=== PATIENT | male | born 1940 | race Hispanic/Latino ===

== ENCOUNTER 2017-10-17 08:35 | Inpatient (IN) | payer OTHER, MEDICARE ==
[2017-10-17 08:53] LABS: CO2 Tension 75.9 mmHg (35.0-45.0)
[2017-10-17 08:54] LABS: Actual Bicarbonate (HCO3a) 36.2 mEq/L (22-28); Base Excess (BEa) 7.6 mEq/L (-2.0 to +3.0); O2 Tension (PaO2) 50.8 mmHg (> 80.0)
[2017-10-17 08:55] LABS: Calcium, Ionized 1.2 mmol/L (1.12-1.30); Hemoglobin (Hb) 11.3 g/dL (14.0-18.0)
[2017-10-17 08:56] LABS: ALV-art Gradient 210.825 (0-20); Analyzer IN Cardio ER; Puncture Site RRA
[2017-10-17] MEDS ORDERED: Propofol 1,000 MG/100 ML VIAL IV ONE (09:01)
[2017-10-17] MEDS ORDERED: methylPREDNISolone Sod Succ/PF 125 MG/2 ML VIAL ONE (09:10)
[2017-10-17] MEDS ORDERED: Piperacillin/Tazobactam 4.5 GM VIAL ONE (09:10)
[2017-10-17] MEDS ORDERED: Water For Inject, Bacteriostat 30 ML ONE (09:11)
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
[2017-10-17 09:14] LABS: INR-International Normal Ratio 1.1; PTT 33.3 SEC (22.9-36.1); Prothrombin Time 14.7 SEC (12.0-14.7)
[2017-10-17 09:15] LABS: Amphetamine Not Detected (NotDetected); Barbiturates Screen Not Detected (NotDetected); Benzodiazepine Screen Not Detected (NotDetected); Bilirubin Negative (Negative); Blood, Urine Small (Negative); Clarity CLOUDY (Clear); Cocaine Metabolite Screen Not Detected (NotDetected); Glucose, Urine (Dipstick) 250 mg/dL (Negative); Leukocyte Negative (Negative); Medtox Control Line Valid? VALID (VALID); Medtox Reader # READER 1; Methadone Not Detected (NotDetected); Methamphetamine Not Detected (NotDetected); Nitrite Negative (Negative); Opiate Screen Not Detected (NotDetected); Oxycodone Screen Not Detected (NotDetected); Phencyclidine (PCP) Not Detected (NotDetected); Protein, Urine (Dipstick) 30 mg/dL (Neg-Trace); Specific Gravity, Urine 1.019 (1.002-1.036); THC/Cannabinoid Screen Not Detected (NotDetected); Tricyclic Screen Not Detected (NotDetected)
[2017-10-17 09:18] LABS: Bacteria/HPF None Seen HPF (None Seen); Pathc Cast-AUWi Flag 2.03 (0-2.49); Squamous Epithelial 0-3 HPF (0-3); WBC/HPF 0-3 HPF (0-3)
[2017-10-17 09:28] LABS: Hyaline Casts/LPF 0-3 HYALINE CAST LPF (0-3 Hyaline); Renal Epithelial 0-3 HPF (0-3); Transitional Epithelial 0-3 HPF (0-3)
[2017-10-17 09:30] LABS: ALT (SGPT) 31 U/L (8-55); AST (SGOT) 31 U/L (5-34); Acetaminophen Less than 6.0 mcg/mL (10.0-30.0); Albumin 3.9 g/dL (3.4-4.8); Alcohol Less than 10 mg/dL (Less than 10); Alkaline Phosphatase 90 U/L (40-150); Anion Gap 16 mmol/L (10-20); BUN (Urea Nitrogen) 32 mg/dL (8.4-25.7); Bilirubin, Total 0.3 mg/dL (0.2-1.2); CK (CPK) 155 U/L (30-200); CKMB 3.7 ng/mL (0-6.6); Calc. Creatinine Clearance 0 mL/min (70-130); Carbon Dioxide 32 mmol/L (23-31); Chloride 89 mmol/L (98-107); Estimated GFR-MDRD 48; Globulin 3.3 g/dL (2.4-3.5); Glucose 324 mg/dL (83-110); Magnesium 2.1 mg/dL (1.6-2.6); Potassium 5.2 mmol/L (3.5-5.1); Protein, Total 7.2 g/dL (5.8-8.1); Salicylate Less than 8.0 mg/dL (15.0-30.0); Sodium 132 mmol/L (136-145); Troponin I 0.031 ng/mL (< 0.028)
[2017-10-17] MEDS ORDERED: Fentanyl 100 MCG/2 ML VIAL ONE ×3 (10:51→12:35)
--- NOTE | 2017-10-17 11:12 | CT ---
CT BRAIN WITHOUT CONTRAST: History: Altered mental status. Elevated blood pressure. Comparison: CT brain, 2013 FINDINGS: There is encephalomalacia in the right frontal lobe, similar. No acute hemorrhage. No midline shit or mass effect. Old lacunar infarcts bilaterally, possibly new on the left from 2013. There is a subtle cortical calcification in the right occipital lobe. Mild atrophy. There is mucosal sinus thickening of both maxillary sinuses. Extensive mucosal thickeni ng of both ethmoids. Mild thickening of both frontal sinuses. The mastoids are relatively clear. Globes are normal. IMPRESSION: Chronic changes. No acute intracranial abnormality. POS: [facility]
[2017-10-17 11:17] LABS: Actual Bicarbonate (HCO3a) 30.9 mEq/L (22-28); Base Excess (BEa) 3.5 mEq/L (-2.0 to +3.0); CO2 Tension 63.3 mmHg (35.0-45.0); pH, Arterial 7.31 (7.35-7.45)
[2017-10-17 11:18] LABS: ALV-art Gradient 592.875 (0-20); Analyzer IN Cardio ER; Calcium, Ionized 1.1 mmol/L (1.12-1.30); Hematocrit-ABG 36.8 % (42.0-52.0); Hemoglobin (Hb) 10.3 g/dL (14.0-18.0); Puncture Site RRA
--- NOTE | 2017-10-17 11:59 | RAD ---
CHEST ONE VIEW: History: Respiratory failure. Comparison: 10-17-17 FINDINGS: Patient intubated with enteric tube tip below the clavicles. Enteric tube tip not well seen. Layering left effusion. Heart size is markedly enlarged. IMPRESSION: 1. Endotracheal tube tip below the clavicles. 2. Large layering left effusion. 3. Cardiomegaly. 4. Mild pulmonary venous congestion. POS: [facility]
[2017-10-17 12:15] LABS: O2 Tension (PaO2) 83.1 mmHg (> 70.0); Puncture Site RRA; pH, Arterial 7.33 (7.35-7.45)
[2017-10-17 12:16] LABS: Actual Bicarbonate (HCO3a) 29.6 mEq/L (22-28); Base Excess (BEa) 2.8 mEq/L (-2.0 to +3.0); Calcium, Ionized 1.1 mmol/L (1.12-1.30); Hematocrit-ABG 38.4 % (42.0-52.0); Hemoglobin (Hb) 10.7 g/dL (14.0-18.0)
[2017-10-17 12:18] LABS: Hemoglobin 12.6 g/dL (14.0-18.0); Mean Corpuscular HGB CONC 32.5 g/dL (32.0-36.0); Mean Corpuscular Hemoglobin 31.8 pg (27.0-31.0); Mean Corpuscular Volume 97.8 fL (78.0-98.0); Mean Platelet Volume 6.5 fL (7.4-10.4); Platelet Count 325 thou/uL (130-400); RBC Distribution Width 12.9 % (11.5-14.5); Red Blood Cell (RBC) Count 3.97 mill/uL (4.70-6.10); White Blood Cell (WBC) Count 14.2 thou/uL (4.8-10.8)
[2017-10-17] MEDS ORDERED: Fentanyl 20 mcg/ml (100 ml CADD) IV PRN (12:23)
[2017-10-17] MEDS ORDERED: Lorazepam 2 MG/ML VIAL ONE (12:37)
[2017-10-17 12:46] LABS: Band 24 % (5-11); Lymphocytes 7 % (21-51); MDiff Complete? YES; Monocytes 6 % (0-10); Neutrophil 59 % (42-75); Nucleated RBC 2 % (0); PLT Morphology Comment Appears Adequate; Polychromasia SLIGHT = 2-3 cells (100X) (0-2/hpf); Reactive Lymphocytes 3 % (0-10)
[2017-10-17] MEDS ORDERED: Ventilator Sedation Protocol 1 EACH FS ONE (12:47)
[2017-10-17] MEDS ORDERED: CCU Electrolyte Replacement 1 EACH FS ONE (12:47)
[2017-10-17] MEDS ORDERED: Dextrose 50% Abboject 50 ML SYRINGE SLOW IVP PRN (12:47)
[2017-10-17] MEDS ORDERED: Dextrose 5% in Water 1,000 ML IV PRN (12:47)
[2017-10-17] MEDS ORDERED: Magnesium Oxide 400 MG TAB PO PRN ×2 (12:55)
[2017-10-17] MEDS ORDERED: CCU ELECTROLYTE REPLACEMENT PROTOCOL FS PRN (12:55)
[2017-10-17] MEDS ORDERED: Potassium Phosphate 12 MMOL in Sodium Chloride 0.9% 250 ML 250 ML IV PRN (12:55)
[2017-10-17] MEDS ORDERED: Magnesium 2 GM/NS 0.9% 100 ML 2 GM in Premix Bag 1 BAG IVPB PRN (12:55)
[2017-10-17] MEDS ORDERED: Potassium Chloride 40 MEQ in Sodium Chloride 0.9% 250 ML 250 ML IVPB PRN (12:55)
[2017-10-17] MEDS ORDERED: Potassium Phosphate 15 MMOL in Sodium Chloride 0.9% 250 ML 250 ML IV PRN (12:55)
[2017-10-17] MEDS ORDERED: Potassium Chloride 40 MEQ in Premix Bag 1 BAG IVPB PRN (12:55)
[2017-10-17] MEDS ORDERED: Potassium Phosphate 9 MMOL in Sodium Chloride 0.9% 100 ML IVPB PRN (12:55)
[2017-10-17] MEDS ORDERED: Potassium Chloride 20 MEQ TAB PO PRN (12:55)
[2017-10-17] MEDS ORDERED: Fentanyl CADD 250 ML IVPB SCH (12:56)
[2017-10-17] MEDS ORDERED: Propofol BOLUS 1,000 MG/100 ML VIAL IV PRN (12:56)
[2017-10-17] MEDS ORDERED: DISCONTINUE PREVIOUS NARCOTIC PAIN MEDICATIONS AND BENZODIAZEPINES FS SCH (12:56)
[2017-10-17] MEDS ORDERED: Lorazepam 2 MG/ML VIAL SLOW IVP PRN (12:56)
[2017-10-17] MEDS ORDERED: Fentanyl BOLUS 250 ML IVPB PRN (12:56)
--- NOTE | 2017-10-17 13:37 | CT ---
NONCONTRAST CT THORAX: DATE: 10/17/17. HISTORY: Patient with altered mental status. Decreased oxygen saturation and gasping respirations noted by EM S. Respiratory failure. Oxygen desaturation. Pneumonia. COMPARISON: 08/14/12. FINDINGS: There is consolidation seen at the left lung base with mild patchy parenchymal changes at the right l michelle base. Consolidation of the left lung base is worrisome for pneumonia. Air bronchograms are pres ent within the area of consolidation. There are very small bilateral pleural effusions. Pleural-based calcification at the left lung base is present also noted on prior exam. There are min imal patchy densities within the posterior aspect of the right upper lobe which could be related to a telectasis or infectious process as well. Endotracheal tube is noted in place which is above the level of the titi. Nasogastric tube is note d in place with tip in the distal body of the stomach. Vascular calcifications are present in the thoracic spine which have increased from prior exam. Calc ifications of mitral valve annulus are noted. The heart is mildly enlarged. The upper abdomen demonstrated grossly normal nonenhanced CT appearance. Remote left-sided rib fractures are noted with prominent left glenohumeral osteoarthropathy. Degener ative changes are noted in the spine. No other interval change from the prior exam. IMPRESSION: 1. Left lower lobe pneumonia versus aspiration pneumonitis. 2. Patchy parenchymal changes in the region of the right middle lobe and right lung base which also could be related to developing areas of pneumonia. Followup to complete resolution is recommended. Atypical pneumonia could not be entirely excluded. 3. Very small bilateral pleural effusions. 4. Cardiomegaly. 5. Endotracheal tube and nasogastric tubes noted in place. 6. Remote left-sided rib fractures. POS: [facility]
[2017-10-17 13:47] LABS: Lactic Acid 2.7 mmol/L (0.5-2.2)
[2017-10-17] MEDS ORDERED: VANCOMYCIN IVPB PRN (13:47)
--- NOTE | 2017-10-17 14:29 | HP ---
PRIMARY CARE PHYSICIAN: Dr. Janie Henry. CHIEF COMPLAINT: Altered mental status. HISTORY OF PRESENT ILLNESS: The history of present illness is taken from the patient's son as the patient is currently intubated and cannot give a history. He is a 76-year-old gentleman that has a history of hypertension and diabetes. He was in his usual state of health until this morning, his says he was trying to wake him up, but he would not wake up. He looked sweaty and could barely breathe. For this reason, they called EMS and he was brought to the emergency room. Shortly after being in the ER, he was known to be in respiratory distress and was intubated. He was found to be hypercapnic as well as hypoxic and had a chest x-ray with a left-sided infiltrate. He is being treated for presumed pneumonia. On further questioning of the patient's son and the patient's , who is at the bedside, they said that he seemed to go to bed normal the night before. He did seem to be a little bit tired and weak over the last few days. They did notice a little bit of a poor appetite and he had been complaining of some cough, which is productive of some yellowish phlegm. He had seen his primary care physician who had given him an inhaler as well as some samples of Mucinex. It is unclear whether he had any antibiotics; however, there were none in his medication bag. Otherwise, no other history is obtainable. REVIEW OF SYSTEMS: This is unobtainable as the patient is intubated. PAST MEDICAL HISTORY: Significant for diabetes, hypertension, and high cholesterol. PAST SURGICAL HISTORY: Has had some surgeries for broken leg. ALLERGIES: No known drug allergies. SOCIAL HISTORY: He is . There is no history of any smoking. He drinks , they are not sure how much, but they think maybe a 12 pack a day. He is retired. FAMILY HISTORY: Significant for diabetes mellitus. CURRENT MEDICATIONS: Include Lipitor 10 mg daily, metformin 1000 mg twice daily and losartan 100 mg daily, as well as Mucinex samples. PHYSICAL EXAMINATION: GENERAL: He is intubated, sedation was taken off due to hypotension. He is well-developed and well-nourished. VITAL SIGNS: Blood pressure was approximately 83/40, heart rate in the 70s, respiratory rate is 16 on the ventilator, and temperature was 97.3. HEENT: His pupils are a bit pinpoint and sluggish. There is no conjunctival injection and it was anicteric. NECK: There were no bruits. LUNGS: He has got coarse breath sounds and rhonchi bilaterally. I was not able to appreciate any rales. There is no wheezing. CARDIOVASCULAR: He had a normal S1, S2. I did not appreciate an S3 or S4. No murmurs. ABDOMEN: Obese, it is soft. Bowel sounds are slightly diminished. There is no appreciable organomegaly. EXTREMITIES: There is trace pedal edema. NEUROLOGICALLY: Hard to assess, however, he was moving all of his extremities. There was no report of any neurological deficit prior to the event or being intubated. SIGNIFICANT LABORATORY: CBC is currently pending. He had an ABG of pH is 7.3, pCO2 of 63, pO2 was 41. Sodium 132, potassium 5.2, chloride is 89, CO2 is 32, BUN of 32, creatinine 1.4, glucose is 324, troponin was 0.031. B-natriuretic peptide is 488. Urinalysis was essentially negative. Urine drug screen was negative. On his chest x-ray, he had some cardiomegaly as well as pulmonary parenchymal infiltrate in the left upper lobe. The costophrenic diaphragm on the left is obscured, possibly indicating pleural effusion and it looks as if he may have some patchy infiltrate in the other parts of the lung parenchyma on the right. He had a CT scan of the brain with no acute abnormalities. ASSESSMENT AND PLAN: 1. This is a 76-year-old gentleman who is being admitted to the hospital with acute respiratory failure with hypoxemia and hypercapnia. Possible he has a pneumonia given the distribution of the infiltrate on the chest x-ray, he has a history of previous pneumonia requiring intubation in the past according to the patient's son. We do not yet have the CBC to see if there is any leukocytosis; however, he did not have any fever, but if he does drink 12 beers a day, he is at risk for aspiration; therefore, we will go ahead and admit him to the ICU with acute respiratory failure secondary to pneumonia as a presumed diagnosis, Most likely Community Acquired Pneumonia. He will be placed on broad-spectrum IV antibiotics. Blood cultures have already been obtained from the emergency room. The cnc router operator will be consulted with regards to aid in diagnosis as well as ventilator management. The patient is at risk for coronary artery disease and this could be pulmonary edema as well as pneumonia. This is in the differential given his history of hypertension and diabetes. For this reason, we will go ahead and get an echocardiogram to assess his ejection fraction and get serial cardiac enzymes to rule out myocardial infarction. 2. Diabetes mellitus. He will be placed on a sliding scale insulin and he will also be placed on deep venous thrombosis and gastrointestinal prophylaxis. [facility]
[2017-10-17] MEDS: Piperacillin/Tazobactam 3.375 GM in Sodium Chloride 0.9% 100 ML IVPB SCH ×2 (15:04→20:44)
[2017-10-17] MEDS: Heparin 5,000 UNITS/ML VIAL SC SCH ×2 (15:05→20:45)
[2017-10-17] MEDS: HumaLOG 300 UNITS/3 ML VIAL SC PRN ×2 (15:39→22:05)
[2017-10-17 16:20] LABS: Troponin I 0.326 ng/mL (< 0.028)
[2017-10-17 18:55] LABS: Troponin I 0.577 ng/mL (< 0.028)
[2017-10-17] MEDS: Famotidine/PF 20 mg/2ml Vial SLOW IVP SCH (21:02)
[2017-10-18] MEDS ORDERED: Aspirin 325 MG TAB PER TUBE SCH (01:00)
[2017-10-18] MEDS: Piperacillin/Tazobactam 3.375 GM in Sodium Chloride 0.9% 100 ML IVPB SCH ×4 (03:09→20:24)
[2017-10-18] MEDS: Propofol 1,000 MG/100 ML VIAL IV PRN ×4 (03:13→22:06)
[2017-10-18] MEDS: HumaLOG 300 UNITS/3 ML VIAL SC PRN ×4 (04:21→20:25)
[2017-10-18 04:41] LABS: Band 18 % (5-11); Hemoglobin 10.8 g/dL (14.0-18.0); Lymphocytes 8 % (21-51); MDiff Complete? YES; Mean Corpuscular HGB CONC 33.4 g/dL (32.0-36.0); Mean Corpuscular Hemoglobin 31.9 pg (27.0-31.0); Mean Corpuscular Volume 95.5 fL (78.0-98.0); Mean Platelet Volume 6.4 fL (7.4-10.4); Monocytes 4 % (0-10); Neutrophil 70 % (42-75); Nucleated RBC 2 % (0); PLT Morphology Comment Appears Adequate; Platelet Count 277 thou/uL (130-400); RBC Distribution Width 13.1 % (11.5-14.5); Red Blood Cell (RBC) Count 3.39 mill/uL (4.70-6.10); White Blood Cell (WBC) Count 8.3 thou/uL (4.8-10.8)
[2017-10-18 04:42] LABS: Anion Gap 15 mmol/L (10-20); BUN (Urea Nitrogen) 36 mg/dL (8.4-25.7); Calc. Creatinine Clearance 56 mL/min (70-130); Carbon Dioxide 26 mmol/L (23-31); Cardiac Risk 3.4 (Less than 4.5); Chloride 98 mmol/L (98-107); Cholesterol 141 mg/dl (< 200 Desired); Estimated GFR-MDRD 47; Glucose 252 mg/dL (83-110); HDL Cholesterol 41 mg/dL (>60 Neg Risk); LDL Cholesterol, Calculated 59 mg/dL; Magnesium 1.6 mg/dL (1.6-2.6); Potassium 3.9 mmol/L (3.5-5.1); Sodium 135 mmol/L (136-145); Triglycerides 206 mg/dL (Less than 150)
[2017-10-18 06:46] LABS: Actual Bicarbonate (HCO3a) 23.5 mEq/L (22-28); Base Excess (BEa) 0.1 mEq/L (-2.0 to +3.0); CO2 Tension 33.8 mmHg (35.0-45.0); Hemoglobin (Hb) 11.1 g/dL (14.0-18.0); O2 Tension (PaO2) 141.1 mmHg (> 70.0); pH, Arterial 7.46 (7.35-7.45)
[2017-10-18 06:47] LABS: Calcium, Ionized 1.1 mmol/L (1.12-1.30)
[2017-10-18 06:48] LABS: Puncture Site LRA
--- NOTE | 2017-10-18 09:00 | CON ---
DATE OF CONSULTATION: 10/17/2017 HISTORY OF PRESENT ILLNESS: Mr. Bowie is a gentleman who is 76 years old. He presented with respi ratory distress. He apparently was intubated in the field. He has a 7.0 endotracheal tube. The admission history and physical says he was intubated in the ER. PAST MEDICAL HISTORY: Very little known about his past history other than he has diabetes, hypertens ion, liver disorder. SOCIAL HISTORY: He is a nonsmoker. Reportedly, he is a daily drinker. ALLERGIES: He has no drug allergies. FAMILY HISTORY: Positive for diabetes. REVIEW OF SYSTEMS: Not obtainable. PHYSICAL EXAMINATION: GENERAL: He is very tachypneic when he arrived on assist control ventilation. He was switched to bi level with controlled rate and sedated, became much easier to ventilate. VITAL SIGNS: His heart rate is 64 now, respiratory rate is 15, blood pressure 106/63, oximetry is in the mid 90s. HEENT: Pupils react. Sclerae are anicteric. He appears his age. NECK: Supple. LUNGS: Remarkable for rhonchi bilaterally, worse on the left. HEART: Regular rhythm. ABDOMEN: Soft and nontender. No masses. EXTREMITIES: Without clubbing, cyanosis, or edema. NEUROLOGIC: Not really assessable because of his intubation and sedation. LABORATORY AND X-RAY FINDINGS: White count is 14.2, hemoglobin 12.6, platelets 325, 24% bands on his peripheral smear. Sodium 132, potassium 5.2, chloride 89, bicarbonate 32, BUN 32, creatinine 1.42. PH 7.33, pCO2 of 57, pO2 of 83. At 8 o'clock this morning, pH 7.3, CO2 of 75, pO2 of 50 that was dieter tilated. Chest CT without contrast was done at my request. He has dense alveolar infiltrate at the left base greater than the right. There is no evidence for loculated effusion at this time. IMPRESSION: 1. Severe community-acquired pneumonia with respiratory failure. 2. ? daily heavy alcohol use. 3. Diabetes. 4. Hypertension. 5. Lipid disorder. PLAN: Mechanical ventilation with bilevel ventilation for now until he clinically improves. He will need to be kept sedated. Broad antimicrobial therapy will be given. Does not clinically appear to be septic. Steroids would probably be helpful. Nebulized treatments would be helpful as well. Critical care time, 35 minutes.
--- NOTE | 2017-10-18 09:50 | PDOC.PN ---
- Subjective Encounter Start Date: 10/18/17 Encounter Start Time: 09:46 was seen for follow of Acute respiratory failure due to Pneumonia. He is intubated and sedated. - Objective Resuscitation Status: Resuscitation Status FULL:Full Resuscitation MAR Reviewed: Yes Vital Signs & Weight: Vital Signs (12 hours) Temp Pulse Resp BP Pulse Ox 10/18/17 06:55 63 129/64 10/18/17 06:25 61 134/73 10/18/17 06:00 15 10/18/17 04:00 97.8 F 15 10/18/17 03:41 97.7 F 70 15 99 10/18/17 02:19 65 10/18/17 02:18 65 15 99 10/18/17 02:00 15 10/18/17 00:00 15 10/17/17 22:09 70 17 96 10/17/17 22:00 15 Most Recent Monitor Data Heart Rate from ECG 63 NIBP 134/73 NIBP BP-Mean 97 Respiration from ECG 15 SpO2 98 I&O: 10/17/17 10/18/17 10/19/17 06:59 06:59 06:59 Intake Total 241.5 Output Total 660 Balance -418.5 Result Diagrams: 10/18/17 04:23 10/18/17 04:23 Additional Labs: Accuchecks 10/18/17 10/17/17 10/17/17 04:16 22:02 15:34 POC Glucose 227 H 241 H 286 H Phys Exam - Physical Examination HEENT: PERRLA Respiratory: no wheezing + rhonchi scattered, no appreciable rales Cardiovascular: RRR, no significant murmur, no rub Gastrointestinal: soft, non-tender, positive bowel sounds Musculoskeletal: no edema Dx/Plan (1) Acute respiratory failure with hypoxia Code(s): J96.01 - ACUTE RESPIRATORY FAILURE WITH HYPOXIA Status: Acute (2) Pneumonia, community acquired Code(s): J18.9 - PNEUMONIA, UNSPECIFIED ORGANISM Status: Acute (3) Diabetes mellitus type 2 in obese Code(s): E11.69 - TYPE 2 DIABETES MELLITUS WITH OTHER SPECIFIED COMPLICATION; E66.9 - OBESITY, UNSPECIFIED Status: Acute (4) Hypertension Code(s): I10 - ESSENTIAL (PRIMARY) HYPERTENSION Status: Acute - Plan * Pneumonia- Continue Zosyn and Vancomycin for now and is still requiring ventilator support * Continue as per PCCM * DM- blood glucose was a bit elevated- will add a low dose Long acting insulin * HTN- blood pressure is controlled * Continue DVT abd GI prophylaxis * If he remains intubated then consider Nutritional support with tube feeding.
[2017-10-18] MEDS: Heparin 5,000 UNITS/ML VIAL SC SCH ×3 (09:59→20:24)
[2017-10-18] MEDS: Vancomycin HCl 1.5 GM in Sodium Chloride 0.9% 250 ML 300 ML IVPB SCH (10:00)
--- NOTE | 2017-10-18 10:59 | RAD ---
PORTABLE SEMIUPRIGHT FRONTAL CHEST RADIOGRAPH: 10/18/2017 HISTORY: Ventilated patient. COMPARISON: 10/17/2017 FINDINGS: Nasogastric tube and endotracheal tube in stable position. Hazy increased density within the left ba se suggests volume loss or infiltrate. There is dense opacity within the left base, suggesting left lower lobe consolidation/collapse and/or left pleural fluid, slightly worsened when compared to the prior exam. There is severe degenerative change at the left glenohumeral joint. IMPRESSION: Dense opacity in left lung base. Stable lines and tubes. POS: [facility]
--- NOTE | 2017-10-18 13:13 | PRG ---
DATE OF SERVICE: 10/18/2017 SUBJECTIVE: Mr. Bowie has improved dramatically. His is a [place]ican speaking only, but in my r easonable [place], I explained to her that he is doing better. OBJECTIVE: VITAL SIGNS: He is afebrile, respiratory rate is 14, oximetry is in the mid 90s, heart rate 68, bloo d pressure 114/59. LUNGS: Remarkable for improved rhonchi, secretions seem to have improved. HEART: Regular rhythm, no S3. ABDOMEN: Soft and nontender. EXTREMITIES: No clubbing, cyanosis, or edema. NEUROLOGIC: Grossly nonfocal. LABORATORY DATA: White count 8.3, hemoglobin 10.8, platelets 277,000. Sodium 135, potassium 3.9, ch loride 98, bicarbonate 26, BUN 36, creatinine 1.45, glucose 252, creatinine yesterday was 1.42. IMPRESSION AND PLAN: 1. Community-acquired pneumonia. 2. Respiratory failure. 3. Acute on chronic kidney disease. 4. Diabetes. 5. Difficult mechanical ventilation yesterday, he had to be ventilated with bilevel ventilation. To day, his blood gas showed pH 7.46, CO2 33, pO2 of 141 on bilevel on FIO2 of 60%. He has been s witched back to volume ventilation and he is doing well with volume ventilation today. Chest radiograph today showed the dense alveolar infiltrate as expected as worse. Overall, clinically he is better. I would anticipate that he would be ventilated for another 3-5 day s. Critical care time was 30 minutes.
[2017-10-18] MEDS ORDERED: Pancrelipase DR 12000 1 CAP FS PRN (16:38)
[2017-10-18] MEDS ORDERED: Sodium Bicarbonate Tab 325 MG TAB PER TUBE PRN (16:38)
[2017-10-18] MEDS: fentaNYL Citrate/PF 2,000 MCG in Sodium Chloride 0.9% 60 ML IV SCH (17:55)
[2017-10-18] MEDS: Famotidine/PF 20 mg/2ml Vial SLOW IVP SCH (20:24)
[2017-10-18] MEDS: Aspirin 325 MG TAB PER TUBE SCH (20:24)
[2017-10-18] MEDS ORDERED: Insulin Glargine 10 UNITS in Pre-Filled Syringe 1 EACH SC SCH (21:00)
[2017-10-19] MEDS: Piperacillin/Tazobactam 3.375 GM in Sodium Chloride 0.9% 100 ML IVPB SCH ×4 (02:59→20:25)
[2017-10-19] MEDS: Propofol 1,000 MG/100 ML VIAL IV PRN ×3 (02:59→23:57)
[2017-10-19] MEDS: HumaLOG 300 UNITS/3 ML VIAL SC PRN ×4 (04:36→20:30)
[2017-10-19 05:21] LABS: Band 6 % (5-11); Hemoglobin 10.7 g/dL (14.0-18.0); Hypochromia SLIGHT = 6-15 cells (100X) (0-5/hpf); Lymphocytes 1 % (21-51); MDiff Complete? YES; Mean Corpuscular HGB CONC 33.6 g/dL (32.0-36.0); Mean Corpuscular Hemoglobin 32.2 pg (27.0-31.0); Mean Corpuscular Volume 95.9 fL (78.0-98.0); Mean Platelet Volume 6.3 fL (7.4-10.4); Monocytes 6 % (0-10); Neutrophil 87 % (42-75); PLT Morphology Comment Appears Adequate; Platelet Count 282 thou/uL (130-400); RBC Distribution Width 13.4 % (11.5-14.5); Red Blood Cell (RBC) Count 3.31 mill/uL (4.70-6.10); Toxic Granulation SLIGHT; White Blood Cell (WBC) Count 8.4 thou/uL (4.8-10.8)
[2017-10-19 08:10] LABS: Actual Bicarbonate (HCO3a) 29.3 mEq/L (22-28); Base Excess (BEa) 2.7 mEq/L (-2.0 to +3.0); CO2 Tension 51.3 mmHg (35.0-45.0); O2 Tension (PaO2) 89.9 mmHg (> 70.0); pH, Arterial 7.37 (7.35-7.45)
[2017-10-19 08:11] LABS: ALV-art Gradient 131.175 (0-20); Calcium, Ionized 1.1 mmol/L (1.12-1.30); Puncture Site RRA
[2017-10-19] MEDS ORDERED: Insulin Glargine 10 UNITS in Pre-Filled Syringe 1 EACH SC SCH (09:00)
[2017-10-19] MEDS: Heparin 5,000 UNITS/ML VIAL SC SCH ×3 (09:07→20:26)
[2017-10-19] MEDS: Vancomycin HCl 1.5 GM in Sodium Chloride 0.9% 250 ML 300 ML IVPB SCH (09:22)
[2017-10-19 09:26] LABS: Vancomycin, Trough 9.2 ug/mL
[2017-10-19] MEDS ORDERED: Vancomycin HCl 250 MG in Sodium Chloride 0.9% 100 ML IVPB SCH (10:00)
--- NOTE | 2017-10-19 10:21 | RAD ---
SUPINE PORTABLE CHEST ONE VIEW: HISTORY: A 76-year-old male with a history of respiratory insufficiency. COMPARISON: 10/18/2017 FINDINGS: NG tube and endotracheal tube in position. Cardiomegaly with bilateral vascular congestion and bilat eral pleural effusions with some increased markings in the basis, overall stable. IMPRESSION: Overall stable chest with cardiomegaly, vascular congestion, and pleural effusion. Continue short te rm followup. POS: [facility]
--- NOTE | 2017-10-19 10:36 | PDOC.PN ---
- Subjective Encounter Start Date: 10/19/17 Encounter Start Time: 10:35 Mr. Bowie was seen today in follow-up of Pneumonia. He is still intubated. He is more alert, and will respond to voice. No complaints voiced by staff. - Objective Resuscitation Status: Resuscitation Status FULL:Full Resuscitation MAR Reviewed: Yes Vital Signs & Weight: Vital Signs (12 hours) Temp Pulse Resp BP Pulse Ox 10/19/17 08:00 98.2 F 12 10/19/17 07:08 69 136/71 10/19/17 07:01 55 L 12 97 10/19/17 06:00 12 10/19/17 04:00 97.8 F 14 10/19/17 02:00 14 10/19/17 01:53 61 10/19/17 01:52 60 14 96 10/19/17 00:00 97.7 F 14 Weight Admit Weight 200 lb 13.44 oz Weight 200 lb 13.458 oz Most Recent Monitor Data Heart Rate from ECG 65 NIBP 168/82 NIBP BP-Mean 93 Respiration from ECG 12 SpO2 92 I&O: 10/18/17 10/19/17 10/20/17 06:59 06:59 06:59 Intake Total 241.5 1929.9 Output Total 660 978 330 Balance -418.5 951.9 -330 Result Diagrams: 10/19/17 04:45 10/18/17 04:23 Additional Labs: Accuchecks 10/19/17 10/18/17 10/18/17 04:27 20:25 16:24 POC Glucose 247 H 233 H 234 H Phys Exam - Physical Examination HEENT: PERRLA + coarse breath sounds, and rales at the bases Cardiovascular: RRR, no significant murmur, no rub Gastrointestinal: soft, positive bowel sounds Musculoskeletal: no edema Dx/Plan (1) Acute respiratory failure with hypoxia Code(s): J96.01 - ACUTE RESPIRATORY FAILURE WITH HYPOXIA Status: Acute (2) Pneumonia, community acquired Code(s): J18.9 - PNEUMONIA, UNSPECIFIED ORGANISM Status: Acute (3) Diabetes mellitus type 2 in obese Code(s): E11.69 - TYPE 2 DIABETES MELLITUS WITH OTHER SPECIFIED COMPLICATION; E66.9 - OBESITY, UNSPECIFIED Status: Acute (4) Hypertension Code(s): I10 - ESSENTIAL (PRIMARY) HYPERTENSION Status: Acute - Plan * Acute respiratory failure due to Pneumonia- continue Zosyn and Vancomycin * DM- blood glucose is elevated- likely due to steroids- will continue to titrate the dose of insulin * .
[2017-10-19] MEDS ORDERED: Losartan 25 MG TAB PER TUBE SCH (11:00)
--- NOTE | 2017-10-19 12:44 | PRG ---
DATE OF SERVICE: 10/19/2017 SUBJECTIVE: The patient remains intubated on the vent. He is slightly sedated. He is responsive. His daughter is at the bedside. PHYSICAL EXAMINATION: VITAL SIGNS: Blood pressure 131/70, pulse 55, respirations 18, sats are 95%. CHEST: Extensive rhonchi and crackles. CARDIAC: Sinus tachycardia. ABDOMEN: Distended, but soft. LABORATORY DATA AND IMAGING DATA: PO2 is 89, pCO2 of 51, rate of 12, 40%, 500 tidal volume. C hest x-ray showed bilateral lower lobe infiltrates. Glucose 249. His chemistry profile shows creati nine is 1.45. IMPRESSION: Bilateral bronchopneumonia, obesity and deconditioning. So far, cultures are negative. PLAN: He is not weanable. Continue steroids, neb treatments. Nutrition and PT. One-half hour critical care time.
[2017-10-19] MEDS: fentaNYL Citrate/PF 2,000 MCG in Sodium Chloride 0.9% 60 ML IV SCH (13:55)
[2017-10-19] MEDS: Aspirin 325 MG TAB PER TUBE SCH (20:26)
[2017-10-19] MEDS: Famotidine/PF 20 mg/2ml Vial SLOW IVP SCH (20:27)
[2017-10-19] MEDS ORDERED: Insulin Glargine 15 UNITS in Pre-Filled Syringe 1 EACH SC SCH (21:00)
[2017-10-20] MEDS: Piperacillin/Tazobactam 3.375 GM in Sodium Chloride 0.9% 100 ML IVPB SCH ×4 (02:29→21:07)
[2017-10-20] MEDS: HumaLOG 300 UNITS/3 ML VIAL SC PRN ×3 (05:59→21:11)
[2017-10-20 06:01] LABS: Band 1 % (5-11); Elliptocytes SLIGHT = 2-5 cells (100X) (0-1/hpf); Hemoglobin 10.3 g/dL (14.0-18.0); Lymphocytes 2 % (21-51); MDiff Complete? YES; Mean Corpuscular Hemoglobin 30.5 pg (27.0-31.0); Mean Corpuscular Volume 98.2 fL (78.0-98.0); Mean Platelet Volume 6.3 fL (7.4-10.4); Microcytosis SLIGHT = 6-15 cells (100X) (0-5/hpf); Monocytes 4 % (0-10); Neutrophil 93 % (42-75); PLT Morphology Comment Appears Adequate; Platelet Count 262 thou/uL (130-400); RBC Distribution Width 13.8 % (11.5-14.5); White Blood Cell (WBC) Count 8.5 thou/uL (4.8-10.8)
[2017-10-20 08:37] LABS: Actual Bicarbonate (HCO3a) 33.7 mEq/L (22-28); Base Excess (BEa) 6.1 mEq/L (-2.0 to +3.0); CO2 Tension 64.1 mmHg (35.0-45.0); Hemoglobin (Hb) 11.9 g/dL (14.0-18.0); O2 Tension (PaO2) 74.8 mmHg (> 70.0); pH, Arterial 7.34 (7.35-7.45)
[2017-10-20 08:38] LABS: ALV-art Gradient 130.275 (0-20); Calcium, Ionized 1.2 mmol/L (1.12-1.30); Puncture Site RRA
[2017-10-20] MEDS ORDERED: Insulin Glargine 15 UNITS in Pre-Filled Syringe 1 EACH SC SCH (09:00)
[2017-10-20] MEDS ORDERED: Losartan 25 MG TAB PO SCH (09:00)
--- NOTE | 2017-10-20 10:01 | PRG ---
DATE OF SERVICE: 10/20/2017 SUBJECTIVE: This morning, intubated on the vent, awake. OBJECTIVE: VITAL SIGNS: Pulse 71, blood pressure is 119/46, sats are 91-92% on the vent, respirations 12. He i s awake. Temperature is 98. CHEST: Bilateral rhonchi. CARDIAC: Normal S1 and S2, no gallops. ABDOMEN: Soft. EXTREMITIES: No edema. NEUROLOGIC: He is awake. LABORATORY DATA: PO2 is 74, pCO2 is 64, pH is 7.34. White count 8.5, hemoglobin and hematocrit 10 a nd 30, platelet count is normal. IMAGING DATA: X-ray shows bilateral bronchopneumonia. IMPRESSION: 1. Bilateral bronchopneumonia. 2. Respiratory failure. 3. Obesity. PLAN: All cultures are negative. I will continue Zosyn, steroids, vancomycin. He is not weanable at this stage. Continue nutrition and PT. [id number] critical care time.
--- NOTE | 2017-10-20 10:10 | PDOC.PN ---
- Subjective Encounter Start Date: 10/20/17 Encounter Start Time: 10:08 Mr. Bowie was ssen today in follow-up of acute respiratory failure due to pneumonia. He is stable on the ventilator. He indicates no problems. - Objective Resuscitation Status: Resuscitation Status FULL:Full Resuscitation MAR Reviewed: Yes Vital Signs & Weight: Vital Signs (12 hours) Temp Pulse Resp BP Pulse Ox 10/20/17 09:22 97.8 F 60 10 L 96 10/20/17 08:42 12 10/20/17 08:11 72 115/49 L 10/20/17 08:08 66 10 L 95 10/20/17 08:00 97.8 F 10/20/17 06:00 10 L 10/20/17 04:00 98.6 F 10 L 10/20/17 02:00 10 L 10/20/17 01:57 59 L 10 L 95 10/20/17 00:00 98.4 F 10 L 10/19/17 22:19 58 L 12 94 L Weight Admit Weight 200 lb 13.44 oz Weight 200 lb 13.458 oz Most Recent Monitor Data Heart Rate from ECG 66 NIBP 179/80 NIBP BP-Mean 89 Respiration from ECG 12 SpO2 95 I&O: 10/19/17 10/20/17 10/21/17 06:59 06:59 06:59 Intake Total 1929.9 2202.4 30 Output Total 978 1518 240 Balance 951.9 684.4 -210 Result Diagrams: 10/20/17 05:34 10/18/17 04:23 Additional Labs: Accuchecks 10/20/17 10/19/17 10/19/17 05:35 20:24 16:51 POC Glucose 224 H 224 H 199 H 10/19/17 10:18 POC Glucose 241 H Phys Exam - Physical Examination HEENT: PERRLA + coarse breath sounds bilaterally and rales at the bases Cardiovascular: RRR, no significant murmur, no rub Gastrointestinal: soft, positive bowel sounds Musculoskeletal: no edema Dx/Plan (1) Acute respiratory failure with hypoxia Code(s): J96.01 - ACUTE RESPIRATORY FAILURE WITH HYPOXIA Status: Acute (2) Pneumonia, community acquired Code(s): J18.9 - PNEUMONIA, UNSPECIFIED ORGANISM Status: Acute (3) Diabetes mellitus type 2 in obese Code(s): E11.69 - TYPE 2 DIABETES MELLITUS WITH OTHER SPECIFIED COMPLICATION; E66.9 - OBESITY, UNSPECIFIED Status: Acute (4) Hypertension Code(s): I10 - ESSENTIAL (PRIMARY) HYPERTENSION Status: Acute - Plan * Pneumonia- continue Vancomycin and Zosyn * Slow wean from the Ventilator as per Dr. Lawrence * DM- blood glucose is still a bit elevated- will continue to titrate insulin dose * HTN - blood pressure is mostly stable.
[2017-10-20] MEDS: Heparin 5,000 UNITS/ML VIAL SC SCH ×3 (10:13→21:08)
[2017-10-20] MEDS: Vancomycin HCl 1.75 GM in Sodium Chloride 0.9% 500 ML IVPB SCH (10:14)
[2017-10-20] MEDS: fentaNYL Citrate/PF 2,000 MCG in Sodium Chloride 0.9% 60 ML IV SCH (10:28)
--- NOTE | 2017-10-20 10:49 | RAD ---
PORTABLE AP CHEST XRAY: DATE: 10/20/17. HISTORY: On ventilator. COMPARISON: 10/19/17. FINDINGS: Endotracheal tube and nasogastric tubes remain in place and unchanged in position. There are bibasil ar pleural and parenchymal lung changes likely related to bilateral pleural effusions and associated atelectasis. Increased parenchymal densities are also seen in the left perihilar location. Findings could be related to asymmetric edema or developing infectious process. Cardiac silhouette is magnif ied by patient rotation but is probably mildly enlarged. No other interval change. IMPRESSION: 1. Bilateral pleural effusions with associated atelectasis. 2. Parenchymal changes in the left perihilar location which could be related to either asymmetric pu lmonary edema or developing infectious process. POS: [facility]
[2017-10-20] MEDS: Losartan 25 MG TAB PER TUBE SCH (10:53)
[2017-10-20] MEDS: Propofol 1,000 MG/100 ML VIAL IV PRN ×2 (10:59→21:07)
[2017-10-20] MEDS ORDERED: Insulin Glargine 20 UNITS in Pre-Filled Syringe SC SCH (11:15)
[2017-10-20] MEDS: hydrALAZINE 20 MG/ML VIAL SLOW IVP PRN ×2 (13:10→16:55)
[2017-10-20] MEDS ORDERED: Amlodipine 5 MG TAB PER TUBE SCH (17:15)
[2017-10-20] MEDS: Famotidine/PF 20 mg/2ml Vial SLOW IVP SCH (21:09)
[2017-10-20] MEDS: Insulin Glargine 20 UNITS in Pre-Filled Syringe SC SCH (21:10)
[2017-10-20] MEDS: Aspirin 325 MG TAB PER TUBE SCH (21:10)
[2017-10-21] MEDS: Propofol 1,000 MG/100 ML VIAL IV PRN ×6 (00:34→23:22)
[2017-10-21] MEDS: Piperacillin/Tazobactam 3.375 GM in Sodium Chloride 0.9% 100 ML IVPB SCH ×4 (03:38→20:19)
[2017-10-21] MEDS: HumaLOG 300 UNITS/3 ML VIAL SC PRN ×3 (04:01→15:38)
[2017-10-21 04:46] LABS: Band 3 % (5-11); Hemoglobin 12.1 g/dL (14.0-18.0); Lymphocytes 6 % (21-51); MDiff Complete? YES; Mean Corpuscular HGB CONC 32.4 g/dL (32.0-36.0); Mean Corpuscular Hemoglobin 31.9 pg (27.0-31.0); Mean Corpuscular Volume 98.3 fL (78.0-98.0); Mean Platelet Volume 6.4 fL (7.4-10.4); Monocytes 1 % (0-10); Neutrophil 90 % (42-75); PLT Morphology Comment Appears Adequate; Platelet Count 248 thou/uL (130-400); Red Blood Cell (RBC) Count 3.81 mill/uL (4.70-6.10); White Blood Cell (WBC) Count 8.1 thou/uL (4.8-10.8)
[2017-10-21] MEDS: fentaNYL Citrate/PF 2,000 MCG in Sodium Chloride 0.9% 60 ML IV SCH (06:34)
[2017-10-21 07:33] LABS: Actual Bicarbonate (HCO3a) 32.3 mEq/L (22-28); Base Excess (BEa) 5.6 mEq/L (-2.0 to +3.0); CO2 Tension 57.8 mmHg (35.0-45.0); Calcium, Ionized 1.2 mmol/L (1.12-1.30); Hemoglobin (Hb) 11.6 g/dL (14.0-18.0); O2 Tension (PaO2) 77.8 mmHg (> 70.0); pH, Arterial 7.37 (7.35-7.45)
[2017-10-21 07:34] LABS: Puncture Site RRA
[2017-10-21] MEDS: Insulin Glargine 20 UNITS in Pre-Filled Syringe SC SCH ×2 (08:13→21:58)
[2017-10-21] MEDS: Heparin 5,000 UNITS/ML VIAL SC SCH ×3 (08:14→20:18)
[2017-10-21] MEDS: Losartan 25 MG TAB PER TUBE SCH (08:14)
[2017-10-21 08:32] LABS: Vancomycin, Trough 11.7 ug/mL
--- NOTE | 2017-10-21 09:16 | PQF ---
CLINICAL DOCUMENTATION IMPROVEMENT CLARIFICATION FORM: ICD-10 Updated PLEASE DO AN ADDENDUM TO THE PROGRESS NOTE WITH ANY DOCUMENTATION UPDATES OR ADDITIONS AND CARRY THROUGH TO DC SUMMARY. THANK YOU. DATE: 10/23 ATTN: DR. ELIF SIMMONS / DR. ITALIA FENTON Please exercise your independent, professional judgment in responding to the clarification form. Clinical indicators are provided on the bottom of this form for your review. Please check appropriate box(s): AMI TYPE: [ ] Acute Coronary Syndrome (ACS) without Acute RI meaning Unstable Angina [ ] NSTEMI [ ] AMI Type II [ X ] Other diagnosis __Likely secondary to demand from septic shock [ ] Unable to determine CLINICAL INDICATORS - SIGNS / SYMPTOMS / LABS TROP I: 0.031, 0.326, 0.577, 0.630 RISKS: COMMUNITY ACQUIRED PNEUMONIA ACUTE HYPOXIC RESPIRATORY FAILURE DM HTN TREATMENTS: CCU MONITORING ECHO (10/17, EF 40-45%, L ATRIUM MILDLY DILATED) MECHANICAL VENTILATION (10/17 - PRESENT) THANK YOU! Laurence (This form is maintained as a part of the permanent medical record) 2014 [address] Z. All Rights Reserved Laurence Negrete RN, BSN [email or web address] Office: [phone] [facility]
--- NOTE | 2017-10-21 09:25 | PQF ---
CLINICAL DOCUMENTATION IMPROVEMENT CLARIFICATION FORM: ICD-10 Updated PLEASE DO AN ADDENDUM TO THE PROGRESS NOTE WITH ANY DOCUMENTATION UPDATES OR ADDITIONS AND CARRY THROUGH TO DC SUMMARY. THANK YOU. DATE: 10/21, 10/23 ATTN: DR. ELIF SIMMONS / DR. ITALIA FENTON Please exercise your independent, professional judgment in responding to the clarification form. Clinical indicators are provided on the bottom of this form for your review. Please check appropriate box(es): [ ] Sepsis due to: (Pna, UTI, gangrenous gall bladder, etc.) [ ] Severe sepsis with acute organ dysfunction of: (Examples: respiratory failure, encephalopathy, acute kidney failure, other) [ X ] Septic Shock [ ] Localized infection without sepsis [ ] Other diagnosis [ ] Unable to determine For continuity of documentation, please document condition throughout progress notes and discharge summary. Thank You. CLINICAL INDICATORS - SIGNS / SYMPTOMS / LABS ER PRESENTATION 10/17: T: 95.7 WBC: 14.2 LACTIC ACID: 4.0 ER PHYSICIAN DOCUMENTATION 10/17: PT INTUBATED ON ARRIVAL TO ER. PT IS CRITICALLY ILL WITH HYPOXIC RESPIRATORY FAILURE, COMMUNITY ACQUIRED PNEUMONIA, AND SEPTIC SHOCK RISK FACTORS: COMMUNITY ACQUIRED BILATERAL BRONCHOPNEUMONIA ACUTE HYPOXIC RESPIRATORY FAILURE TREATMENTS: CCU MONITORING MECHANICAL VENTILATION (10/17 - PRESENT) IV ANTIBIOTICS (VANCOMYCIN & ZOSYN 10/17 - PRESENT) THANK YOU! Laurence (This form is maintained as a part of the permanent medical record) 2014 [email or web address]. All Rights Reserved Laurence Negrete, RN, BSN [email or web address] Office: [phone] [facility]
[2017-10-21] MEDS: Vancomycin HCl 1.75 GM in Sodium Chloride 0.9% 500 ML IVPB SCH (09:33)
--- NOTE | 2017-10-21 09:35 | PDOC.PN ---
- Subjective Encounter Start Date: 10/21/17 Encounter Start Time: 09:33 Mr. Bowie was seen today in follow-up of Respiratory failure from Pneumonia. He appears comfortable. He denies having any pain, in the chest . - Objective Resuscitation Status: Resuscitation Status FULL:Full Resuscitation MAR Reviewed: Yes Vital Signs & Weight: Vital Signs (12 hours) Temp Pulse Resp BP Pulse Ox 10/21/17 08:00 98.2 F 60 10 L 99 10/21/17 07:12 57 L 146/52 H 10/21/17 07:11 57 L 10 L 99 10/21/17 06:00 10 L 10/21/17 04:00 98.0 F 10 L 10/21/17 02:40 58 L 16 99 10/21/17 02:00 10 L 10/21/17 00:00 98.3 F 10 L 10/20/17 22:44 62 10/20/17 22:43 62 15 98 10/20/17 22:00 10 L Weight Admit Weight 200 lb 13.44 oz Weight 3.259 oz Most Recent Monitor Data Heart Rate from ECG 58 NIBP 152/61 NIBP BP-Mean 114 Respiration from ECG 15 SpO2 99 I&O: 10/20/17 10/21/17 10/22/17 06:59 06:59 06:59 Intake Total 2202.4 3040.8 120 Output Total 1518 2420 200 Balance 684.4 620.8 -80 Result Diagrams: 10/21/17 03:55 10/18/17 04:23 Additional Labs: Accuchecks 10/21/17 10/20/17 10/20/17 03:57 20:16 15:56 POC Glucose 214 H 166 H 159 H 10/20/17 10:24 POC Glucose 181 H Phys Exam - Physical Examination HEENT: PERRLA Respiratory: no wheezing + rales in the bases, but these are diminished Cardiovascular: RRR, no significant murmur, no rub Gastrointestinal: soft, non-tender, positive bowel sounds Dx/Plan (1) Acute respiratory failure with hypoxia Code(s): J96.01 - ACUTE RESPIRATORY FAILURE WITH HYPOXIA Status: Acute (2) Pneumonia, community acquired Code(s): J18.9 - PNEUMONIA, UNSPECIFIED ORGANISM Status: Acute (3) Diabetes mellitus type 2 in obese Code(s): E11.69 - TYPE 2 DIABETES MELLITUS WITH OTHER SPECIFIED COMPLICATION; E66.9 - OBESITY, UNSPECIFIED Status: Acute (4) Hypertension Code(s): I10 - ESSENTIAL (PRIMARY) HYPERTENSION Status: Acute - Plan * Acute Respiratory failure due to Pneumonia- continue Zosyn and Vancomycin * HTN- blood pressure has been elevated especially when trying to lower his sedation- will add Hydralazine scheduled * DM- blood glucose has been in acceptable range- will re-start Metformin once he is off the ventilator * Continue DVT and GI prophylaxis.
--- NOTE | 2017-10-21 10:14 | RAD ---
SEMI UPRIGHT PORTABLE CHEST ONE VIEW: History: 76-year-old male with history of respiratory insufficiency. Comparison: 10-20-17 FINDINGS: Considerable rotation to the right. Bilateral pleural effusions, greater on the left side. There are some healed left rib fractures. No evidence for pneumothorax. Bilateral perihilar and infrahilar pare nchymal changes, possibly some associated atelectasis. IMPRESSION: Progressive bilateral pleural effusions with cardiomegaly and vascular congestion and some perihilar and infrahilar parenchymal changes. Continued short term follow up. POS: [facility]
[2017-10-21] MEDS: hydrALAZINE 20 MG/ML VIAL SLOW IVP PRN ×2 (11:05→23:18)
[2017-10-21] MEDS: Amlodipine 5 MG TAB PER TUBE SCH (11:58)
[2017-10-21] MEDS: hydrALAZINE 25 MG TAB PER TUBE SCH ×2 (15:29→20:18)
[2017-10-21] MEDS: Famotidine/PF 20 mg/2ml Vial SLOW IVP SCH (20:17)
[2017-10-21] MEDS: Aspirin 325 MG TAB PER TUBE SCH (20:18)
[2017-10-22] MEDS: Piperacillin/Tazobactam 3.375 GM in Sodium Chloride 0.9% 100 ML IVPB SCH ×4 (03:25→21:39)
[2017-10-22 05:02] LABS: Band 4 % (5-11); Hemoglobin 11.7 g/dL (14.0-18.0); Lymphocytes 7 % (21-51); MDiff Complete? YES; Mean Corpuscular HGB CONC 31.9 g/dL (32.0-36.0); Mean Corpuscular Hemoglobin 31.5 pg (27.0-31.0); Mean Corpuscular Volume 98.6 fL (78.0-98.0); Mean Platelet Volume 6.9 fL (7.4-10.4); Monocytes 3 % (0-10); Neutrophil 86 % (42-75); PLT Morphology Comment Appears Adequate; Platelet Count 275 thou/uL (130-400); RBC Distribution Width 14.1 % (11.5-14.5); Red Blood Cell (RBC) Count 3.73 mill/uL (4.70-6.10); White Blood Cell (WBC) Count 8.3 thou/uL (4.8-10.8)
[2017-10-22 05:08] LABS: Anion Gap 11 mmol/L (10-20); BUN (Urea Nitrogen) 38 mg/dL (8.4-25.7); Calc. Creatinine Clearance 101 mL/min (70-130); Calcium 8.6 mg/dL (7.8-10.44); Carbon Dioxide 33 mmol/L (23-31); Chloride 101 mmol/L (98-107); Estimated GFR-MDRD Greater than 90; Glucose 204 mg/dL (83-110); Potassium 5.5 mmol/L (3.5-5.1); Sodium 139 mmol/L (136-145)
[2017-10-22] MEDS: Propofol 1,000 MG/100 ML VIAL IV PRN ×4 (05:17→16:49)
[2017-10-22] MEDS: HumaLOG 300 UNITS/3 ML VIAL SC PRN ×4 (05:17→17:22)
[2017-10-22] MEDS: fentaNYL Citrate/PF 2,000 MCG in Sodium Chloride 0.9% 60 ML IV SCH (05:17)
[2017-10-22] MEDS: hydrALAZINE 20 MG/ML VIAL SLOW IVP PRN ×2 (06:25→16:17)
[2017-10-22 07:01] LABS: Actual Bicarbonate (HCO3a) 31.7 mEq/L (22-28); Base Excess (BEa) 5.5 mEq/L (-2.0 to +3.0); CO2 Tension 52.8 mmHg (35.0-45.0); Calcium, Ionized 1.2 mmol/L (1.12-1.30); Hemoglobin (Hb) 13.3 g/dL (14.0-18.0); O2 Tension (PaO2) 74.8 mmHg (> 70.0); Puncture Site LRA
--- NOTE | 2017-10-22 07:49 | PRG ---
DATE OF SERVICE: 10/21/2017 SUBJECTIVE: Mr. Bowie remains mechanically ventilated. His intakes and outputs are positive 620 mL. OBJECTIVE: VITAL SIGNS: Heart rate 61, blood pressure 130/56. He is afebrile. LUNGS: Remarkable for coarse equal breath sounds. HEART: Regular rhythm. S1 and S2 are normal. ABDOMEN: Soft without tenderness. EXTREMITIES: Without edema. He moves all extremities equally. LABORATORY DATA: White count of 8.1, hemoglobin 12.1, platelets 248,000. Sodium 130. Some reason t here have not been electrolytes done since the . IMPRESSION: 1. Respiratory failure. 2. Pneumonia, not weanable. 3. Obesity. IMAGING: X-ray still shows effusions and infiltrates bilaterally. LABORATORY DATA: Blood gas shows a pH of 7.37, CO2 of 57, pO2 of 77. I feel he is weanable at this point in time. Continue current supportive care. Check electrolytes i n the morning. His renal function is stable, we can consider diuresis possibly. Critical care time was 30 minutes.
[2017-10-22] MEDS: hydrALAZINE 25 MG TAB PER TUBE SCH ×3 (08:16→21:39)
[2017-10-22] MEDS: Losartan 25 MG TAB PER TUBE SCH (08:16)
[2017-10-22] MEDS: Heparin 5,000 UNITS/ML VIAL SC SCH ×3 (08:17→21:39)
[2017-10-22] MEDS: Vancomycin HCl 1.75 GM in Sodium Chloride 0.9% 500 ML IVPB SCH (08:23)
[2017-10-22] MEDS: Insulin Glargine 20 UNITS in Pre-Filled Syringe SC SCH ×2 (08:25→21:39)
--- NOTE | 2017-10-22 09:47 | PDOC.PN ---
- Subjective Encounter Start Date: 10/22/17 Encounter Start Time: 09:44 Mr. Bowie was seen today in follow-up of pneumonia. He is awake, and can communicate by noding or shaking his head. - Objective Resuscitation Status: Resuscitation Status FULL:Full Resuscitation MAR Reviewed: Yes Vital Signs & Weight: Vital Signs (12 hours) Temp Pulse Resp BP Pulse Ox 10/22/17 08:16 79 149/67 H 10/22/17 06:51 69 165/75 H 10/22/17 06:50 69 13 99 10/22/17 06:25 66 166/75 H 10/22/17 06:00 13 10/22/17 04:00 98.5 F 12 10/22/17 02:42 69 14 98 10/22/17 02:00 14 10/22/17 00:00 98.5 F 12 10/21/17 23:18 74 186/75 H 10/21/17 22:35 77 18 100 10/21/17 22:00 15 Weight Admit Weight 200 lb 13.44 oz Weight 202 lb 2.622 oz Most Recent Monitor Data Heart Rate from ECG 71 NIBP 182/78 NIBP BP-Mean 93 Respiration from ECG 13 SpO2 96 I&O: 10/21/17 10/22/17 10/23/17 06:59 06:59 06:59 Intake Total 3040.8 3080.9 Output Total 2420 1972 Balance 620.8 1108.9 Result Diagrams: 10/22/17 04:45 10/22/17 04:45 Additional Labs: Accuchecks 10/22/17 10/22/17 10/21/17 08:03 04:33 21:57 POC Glucose 172 H 183 H 192 H 10/21/17 10/21/17 15:38 10:25 POC Glucose 165 H 212 H Phys Exam - Physical Examination HEENT: PERRLA + rhonchi bilaterally Cardiovascular: RRR, no significant murmur, no rub Gastrointestinal: soft, positive bowel sounds Musculoskeletal: no edema Dx/Plan (1) Acute respiratory failure with hypoxia Code(s): J96.01 - ACUTE RESPIRATORY FAILURE WITH HYPOXIA Status: Acute (2) Pneumonia, community acquired Code(s): J18.9 - PNEUMONIA, UNSPECIFIED ORGANISM Status: Acute (3) Diabetes mellitus type 2 in obese Code(s): E11.69 - TYPE 2 DIABETES MELLITUS WITH OTHER SPECIFIED COMPLICATION; E66.9 - OBESITY, UNSPECIFIED Status: Acute (4) Hypertension Code(s): I10 - ESSENTIAL (PRIMARY) HYPERTENSION Status: Acute - Plan * Pneumonia- Community acquired- Continue Zosyn and Vancomycin * Continue Vent support as per PCCM * HTN- blood pressure is labile- continue the current medications, and PRN as well * DM- blood glucose is stable.
--- NOTE | 2017-10-22 09:50 | RAD ---
PORTBLE SEMIURIGHT FRONTAL CHEST RADIOGRAPH: 10/22/2017 HISTORY: Respiratory insufficiency. COMPARISON: 10/21/2017 FINDINGS: The endotracheal tube terminates at the level of the clavicles. The nasogastric tube extends into th e upper abdomen. Numerous old left-sided rib fractures. No pneumothorax. There is atherosclerotic calcification of the aortic arch. There is severe degenerative change of the left glenohumeral joint . Bibasilar dense pleural and parenchymal opacity noted, nonspecific, and not significantly changed, le ft greater than right. IMPRESSION: No significant interval change. POS: [facility]
[2017-10-22] MEDS: Amlodipine 5 MG TAB PER TUBE SCH (12:08)
[2017-10-22] MEDS ORDERED: Furosemide 100 MG/10 ML VIAL SLOW IVP SCH ×2 (15:39→17:15)
--- NOTE | 2017-10-22 16:05 | PRG ---
DATE OF SERVICE: 10/22/2017 SUBJECTIVE: Mr. Bowie remains hemodynamically stable. OBJECTIVE: VITAL SIGNS: His heart rates in the 60s, blood pressure 133/62, respiratory rate is 15, oximetry is 99%. Intake and output is positive 1108. LUNGS: Clear anteriorly. HEART: Regular rhythm. ABDOMEN: Soft. EXTREMITIES: Without asymmetry. NEUROLOGIC: Grossly nonfocal. LABORATORY DATA: White count 8.1, hemoglobin 12.1, platelets 248,000. Sodium 139, potassium 5.5, chloride 101, bicarbonate 33, BUN 38, creatinine 0.8. IMPRESSION: 1. Bilateral pneumonia with acute respiratory distress syndrome, improved slowly. 2. Parapneumonic effusion. 3. Obesity, probably some component of obesity hypoventilation. 4. 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 PLAN: I would recommend consultation with Cardiology given that he has 2 acute care issues. His dep ressed ejection fraction may be related to his clinical sepsis and pneumonia, but may be independent of that as well. We will continue with slow weaning from mechanical ventilation. I met with the family and answered all of their questions. He may benefit from some diuresis at this point. Critical care time was 30 minutes.
[2017-10-22] MEDS: Famotidine/PF 20 mg/2ml Vial SLOW IVP SCH (21:39)
[2017-10-22] MEDS: Aspirin 325 MG TAB PER TUBE SCH (21:40)
[2017-10-23] MEDS: hydrALAZINE 20 MG/ML VIAL SLOW IVP PRN ×2 (00:09→13:43)
[2017-10-23] MEDS: fentaNYL Citrate/PF 2,000 MCG in Sodium Chloride 0.9% 60 ML IV SCH (01:22)
[2017-10-23] MEDS: Piperacillin/Tazobactam 3.375 GM in Sodium Chloride 0.9% 100 ML IVPB SCH ×4 (04:16→20:43)
[2017-10-23] MEDS: Propofol 1,000 MG/100 ML VIAL IV PRN ×2 (04:25→09:45)
[2017-10-23] MEDS: HumaLOG 300 UNITS/3 ML VIAL SC PRN (05:06)
[2017-10-23 05:54] LABS: Anion Gap 14 mmol/L (10-20); BUN (Urea Nitrogen) 43 mg/dL (8.4-25.7); Calc. Creatinine Clearance 88 mL/min (70-130); Calcium 8.4 mg/dL (7.8-10.44); Carbon Dioxide 27 mmol/L (23-31); Chloride 100 mmol/L (98-107); Estimated GFR-MDRD 80; Glucose 165 mg/dL (83-110); Potassium 4.7 mmol/L (3.5-5.1); Sodium 136 mmol/L (136-145)
[2017-10-23 05:58] LABS: Hemoglobin 12.1 g/dL (14.0-18.0); Hypochromia SLIGHT = 6-15 cells (100X) (0-5/hpf); Lymphocytes 8 % (21-51); MDiff Complete? YES; Mean Corpuscular HGB CONC 32.9 g/dL (32.0-36.0); Mean Corpuscular Hemoglobin 31.9 pg (27.0-31.0); Mean Corpuscular Volume 97.1 fL (78.0-98.0); Mean Platelet Volume 6.5 fL (7.4-10.4); Monocytes 3 % (0-10); Neutrophil 89 % (42-75); PLT Morphology Comment Appears Adequate; Platelet Count 300 thou/uL (130-400); RBC Distribution Width 14.1 % (11.5-14.5); Red Blood Cell (RBC) Count 3.79 mill/uL (4.70-6.10); White Blood Cell (WBC) Count 7.8 thou/uL (4.8-10.8)
[2017-10-23 07:29] LABS: pH, Arterial 7.39 (7.35-7.45)
[2017-10-23 07:30] LABS: Actual Bicarbonate (HCO3a) 34.9 mEq/L (22-28); Base Excess (BEa) 8.2 mEq/L (-2.0 to +3.0); CO2 Tension 58.7 mmHg (35.0-45.0); Hemoglobin (Hb) 12.3 g/dL (14.0-18.0); O2 Tension (PaO2) 66.1 mmHg (> 70.0)
[2017-10-23 07:31] LABS: Calcium, Ionized 1.2 mmol/L (1.12-1.30); Puncture Site LB
[2017-10-23 07:32] LABS: ALV-art Gradient 110.075 (0-20)
--- NOTE | 2017-10-23 07:52 | PDOC.PULCC ---
CCU Progress Note: Subj/Obj - Subjective Date: 10/23/17 Time: 07:45 Subjective: This morning the patient remains on mechanical ventilation. - ROS Review of Systems: Denies: cough, shortness of breath - Objective Allergies/Adverse Reactions: Allergies Allergy/AdvReac Type Severity Reaction Status Date / Time No Known Allergies Allergy Verified 10/17/17 14:33 Medications: Current Medications Albuterol/Ipratropium (Duoneb) 3 ml NEB [id number] [facility] Last Admin: 10/23/17 07:18 Dose: 3 ml Amlodipine Besylate (Norvasc) 5 mg PER TUBE 1300 [facility] Last Admin: 10/22/17 12:08 Dose: 5 mg Lipase/Protease/Amylase ([place] [id number]) 1 cap FS .PER PROTOCOL PRN PRN Reason: TUBE OCCLUSION PROTOCOL Aspirin (Aspirin) 325 mg PER TUBE QPM [facility] Last Admin: 10/22/17 21:40 Dose: 325 mg Dextrose/Water (Dextrose 50%) 25 gm SLOW IVP PRN PRN PRN Reason: Hypoglycemia Famotidine (Pepcid) 20 mg SLOW IVP 2100 [facility] Last Admin: 10/22/17 21:39 Dose: 20 mg Glucagon (Glucagon) 1 mg IM PRN PRN PRN Reason: Hypoglycemia Heparin Sodium (Porcine) (Heparin) 5,000 units SC TID [facility] Last Admin: 10/22/17 21:39 Dose: 5,000 units Hydralazine HCl (Apresoline) 10 mg SLOW IVP Q4H PRN PRN Reason: Systolic BP > 180 Last Admin: 10/23/17 00:09 Dose: 10 mg Hydralazine HCl (Apresoline) 25 mg PER TUBE TID [facility] Last Admin: 10/22/17 21:39 Dose: 25 mg Dextrose/Water (D5w) 1,000 mls @ 0 mls/hr IV .Q0M PRN; As Directed PRN Reason: Hypoglycemia Piperacillin Sod/Tazobactam (Sod 3.375 gm/ Sodium Chloride) 100 mls @ 200 mls/ hr IVPB 0300,0900,1500,2100 [facility] Last Admin: 10/23/17 04:16 Dose: 100 mls Potassium Chloride 40 meq/ (Sodium Chloride) 270 mls @ 135 mls/hr IVPB ASDIR PRN PRN Reason: FOR SERUM K+ 2.5 - 3.5 Potassium Chloride 40 meq/ (Device) 100 mls @ 50 mls/hr IVPB ASDIR PRN PRN Reason: FOR SERUM K+ 2.5 - 3.5 Magnesium Sulfate 1 gm/ Sodium (Chloride) 102 mls @ 102 mls/hr IV PRN PRN PRN Reason: MAG LEVEL 1.4 - 2.0 Magnesium Sulfate 2 gm/ Device 100 mls @ 100 mls/hr IVPB ASDIR PRN PRN Reason: MAGNESIUM < 1.4 Potassium Phosphate 9 mmol/ (Sodium Chloride) 103 mls @ 25.75 mls/hr IVPB ASDIR PRN PRN Reason: Phosphate 1.0-1.8 Potassium Phosphate 12 mmol/ (Sodium Chloride) 254 mls @ 63.5 mls/hr IV ASDIR PRN PRN Reason: Serum phosphate 0.5-0.9 Potassium Phosphate 15 mmol/ (Sodium Chloride) 255 mls @ 63.75 mls/hr IV ASDIR PRN PRN Reason: Serum Phos < 0.5 Fentanyl Citrate 2,000 mcg/ (Sodium Chloride) 100 mls @ 0 mls/hr IV INF CHARISMA; Per Protocol PRN Reason: Protocol Stop: 11/16/17 12:56 Last Admin: 10/23/17 01:22 Dose: 100 mls Fentanyl Citrate (Fentanyl Bolus) 250 mls @ 0 mls/hr IVPB PRN PRN; As Directed PRN Reason: Breakthrough pain/agitation Stop: 11/16/17 12:56 Insulin Glargine 20 units/ (Miscellaneous Medication) 0.2 mls @ 0 mls/hr SC HS [facility] Last Admin: 10/22/17 21:39 Dose: 0.2 mls Insulin Glargine 20 units/ (Miscellaneous Medication) 0.2 mls @ 0 mls/hr SC QAM [facility] Last Admin: 10/22/17 08:25 Dose: 0.2 mls Insulin Human Lispro (Humalog) 0 units SC .MODERATE SLIDING SC PRN PRN Reason: Moderate Correctional Scale Last Admin: 10/23/17 05:06 Dose: 2 units Insulin Human Lispro (Humalog) 0 units SC .BEDTIME SLIDING SC PRN PRN Reason: Bedtime Correctional Scale Last Admin: 10/20/17 05:59 Dose: 2 unit Lorazepam (Ativan) 2 mg SLOW IVP Q1H PRN PRN Reason: Breakthrough agitation Stop: 11/16/17 12:56 Last Admin: 10/17/17 13:05 Dose: 2 mg Losartan Potassium (Cozaar) 100 mg PER TUBE DAILY [facility] Last Admin: 10/22/17 08:16 Dose: 100 mg Magnesium Oxide (Magnesium Oxide) 400 mg PO BIDPRN PRN PRN Reason: FOR SERUM MAG 1.4 - 2.0 Magnesium Oxide (Magnesium Oxide) 800 mg PO PRN PRN PRN Reason: FOR SERUM MAG < 1.4 Methylprednisolone Sodium Succinate (Solu-Medrol) 20 mg IVP Q12HR [facility] Last Admin: 10/22/17 21:39 Dose: 20 mg Miscellaneous Medication (Phos-Nak) 1 pkt PO TIDPRN PRN PRN Reason: FOR PHOS LEVEL 1.0 - 1.8 Miscellaneous Medication (Phos-Nak) 2 pkt PO TIDPRN PRN PRN Reason: FOR PHOS LEVEL 0.5 - 1.0 Morphine Sulfate (Morphine Sulfate) 2 mg SLOW IVP Q1H PRN PRN Reason: BREAKTHROUGH PAIN/AGITATION Stop: 11/16/17 12:56 Ccu Electrolyte (Replacement Protocol) 0 each FS PRN PRN PRN Reason: FOR ELECTROLYTE REPLACEMENT Discontinue Previous Narcotic Pain Medications And Benzodiazepines 1 each FS .ONE [facility] Stop: 11/16/17 12:56 Potassium Chloride (K-Dur) 40 meq PO ASDIR PRN PRN Reason: FOR SERUM K+ 2.5 - 3.5 Potassium Chloride (Klor-Con) 40 meq PER TUBE ASDIR PRN PRN Reason: FOR SERUM K+ 2.5-3.5 Propofol (Diprivan) 1,000 mg IV INF PRN; Protocol PRN Reason: TO ACHIEVE GOAL RASS Stop: 11/16/17 12:56 Last Admin: 10/23/17 04:25 Dose: 1,000 mg Propofol (Diprivan Bolus) 20 mg IV Q5MIN PRN PRN Reason: BREAKTHROUGH AGITATION Stop: 11/16/17 12:56 Sodium Bicarbonate (Bicarbonate, Sodium) 650 mg PER TUBE .PER PROTOCOL PRN PRN Reason: ENTERAL TUBE OCCLUSION Sodium Chloride (Flush - Normal Saline) 10 ml IVF Q12HR [facility] Last Admin: 10/22/17 21:40 Dose: 10 ml Sodium Chloride (Flush - Normal Saline) 10 ml IVF PRN PRN PRN Reason: Saline Flush MAR Reviewed: Yes Vital Signs and I&O: Vital Signs Temp 98.6 F 10/23/17 04:00 Pulse 66 10/23/17 07:18 Resp 13 10/23/17 07:18 BP 188/79 H 10/23/17 00:09 Pulse Ox 98 10/23/17 07:18 Intake & Output 10/22/17 10/23/17 10/23/17 18:59 06:59 18:59 Intake Total 1868 943.3 27.7 Output Total 1020 1820 Balance 848 -876.7 27.7 Weight 91.5 kg Intake: Intake, IV Amount 1238 625.3 27.7 Propofol 1000 mg (See 287 266.9 Protocol) IV INF PRN Rx#: [id number] Sodium Chloride 0.9% 10 951 297 ml IVF PRN PRN Rx#: [id number] Citrate/PF 2,000 61.4 27.7 mcg In Sodium Chloride 0 .9% 60 ml @ Per Protocol IV INF CHARISMA Rx#:[id number] Tube Feeding 350 258 Tube Irrigant 280 60 Output: Output, Antonio 1020 1820 Other: Voiding Method Indwelling Catheter Indwelling Catheter Vent Setting: Positive End Expiratory 5 Pressure PEEP High (BiLevel) 24 PEEP Low (BiLevel) 12 % Fraction of Inspired Oxygen 35 (FIO2) CCU Progress Note: Exam - Physical Exam Constitutional: NAD HEENT: moist MMs Cardiovascular: RRR, no significant murmur Respiratory: rhonchi. Denies: accessory muscle use, rales, wheezes Gastrointestinal: soft, non-tender, no distention, positive bowel sounds Musculoskeletal: no edema, pulses present Skin: no rash, cap refill <2 seconds CCU Progress Note: Data - Labs Result Diagrams: 10/23/17 05:14 10/23/17 05:14 Lab results: Laboratory Results 10/21/17 10/21/17 10/21/17 07:51 10:25 15:38 WBC RBC Hgb Hct MCV MCH MCHC RDW Plt Count MPV Neutrophils % (Manual) Band Neuts % (Manual) Lymphocytes % (Manual) Monocytes % (Manual) Hypochromia Plt Morphology Comment Specimen Type Puncture Site Bicarbonate Actual ABG pH ABG pCO2 ABG pO2 ABG O2 Sat Calc/Callie ABG O2 Content ABG Base Excess ABG Hematocrit ABG Hemoglobin ABG Oxyhemoglobin ABG Carboxyhemoglobin ABG Methemoglobin Dave Test A-a O2 Gradient Ionized Calcium Mode of Support % Minute Volume Mechanical Rate Spontaneous Rate Inspired O2 Tidal Volume Spontaneous Tidal Vol Pressure Support PEEP or CPAP Sodium Potassium Chloride Carbon Dioxide Anion Gap BUN Creatinine Estimated GFR (MDRD) Glucose POC Glucose 212 H 165 H Calcium Vancomycin Trough 11.7 10/21/17 10/22/17 10/22/17 21:57 04:33 04:45 WBC 8.3 RBC 3.73 L Hgb 11.7 L Hct 36.8 L MCV 98.6 H MCH 31.5 H MCHC 31.9 L RDW 14.1 Plt Count 275 MPV 6.9 L Neutrophils % (Manual) 86 H Band Neuts % (Manual) 4 L Lymphocytes % (Manual) 7 L Monocytes % (Manual) 3 Hypochromia Plt Morphology Comment Appears Adequate Specimen Type Puncture Site Bicarbonate Actual ABG pH ABG pCO2 ABG pO2 ABG O2 Sat Calc/Callie ABG O2 Content ABG Base Excess ABG Hematocrit ABG Hemoglobin ABG Oxyhemoglobin ABG Carboxyhemoglobin ABG Methemoglobin Dave Test A-a O2 Gradient Ionized Calcium Mode of Support % Minute Volume Mechanical Rate Spontaneous Rate Inspired O2 Tidal Volume Spontaneous Tidal Vol Pressure Support PEEP or CPAP Sodium Potassium Chloride Carbon Dioxide Anion Gap BUN Creatinine Estimated GFR (MDRD) Glucose POC Glucose 192 H 183 H Calcium Vancomycin Trough 10/22/17 10/22/17 10/22/17 04:45 06:30 08:03 WBC RBC Hgb Hct MCV MCH MCHC RDW Plt Count MPV Neutrophils % (Manual) Band Neuts % (Manual) Lymphocytes % (Manual) Monocytes % (Manual) Hypochromia Plt Morphology Comment Specimen Type ARTERIAL Puncture Site LRA Bicarbonate Actual 31.7 H ABG pH 7.40 ABG pCO2 52.8 H ABG pO2 74.8 H ABG O2 Sat Calc/Callie 94.8 ABG O2 Content 17.5 L ABG Base Excess 5.5 H ABG Hematocrit 39.0 L ABG Hemoglobin 13.3 L ABG Oxyhemoglobin ABG Carboxyhemoglobin 1.1 ABG Methemoglobin 0.30 Dave Test POSITIVE A-a O2 Gradient 144.400 H Ionized Calcium 1.2 Mode of Support SIMV,PSV % Minute Volume Mechanical Rate 10 Spontaneous Rate Inspired O2 40 Tidal Volume 500 Spontaneous Tidal Vol Pressure Support 10 PEEP or CPAP 5.0 Sodium 139 136 Potassium 5.5 H 4.6 Chloride 101 99 Carbon Dioxide 33 H Anion Gap 11 BUN 38 H Creatinine 0.80 Estimated GFR (MDRD) Greater than 90 Glucose 204 H POC Glucose 172 H Calcium 8.6 Vancomycin Trough 10/22/17 10/22/17 10/22/17 11:26 17:20 21:44 WBC RBC Hgb Hct MCV MCH MCHC RDW Plt Count MPV Neutrophils % (Manual) Band Neuts % (Manual) Lymphocytes % (Manual) Monocytes % (Manual) Hypochromia Plt Morphology Comment Specimen Type Puncture Site Bicarbonate Actual ABG pH ABG pCO2 ABG pO2 ABG O2 Sat Calc/Callie ABG O2 Content ABG Base Excess ABG Hematocrit ABG Hemoglobin ABG Oxyhemoglobin ABG Carboxyhemoglobin ABG Methemoglobin Dave Test A-a O2 Gradient Ionized Calcium Mode of Support % Minute Volume Mechanical Rate Spontaneous Rate Inspired O2 Tidal Volume Spontaneous Tidal Vol Pressure Support PEEP or CPAP Sodium Potassium Chloride Carbon Dioxide Anion Gap BUN Creatinine Estimated GFR (MDRD) Glucose POC Glucose 153 H 153 H 152 H Calcium Vancomycin Trough 10/23/17 10/23/17 10/23/17 05:05 05:14 05:14 WBC 7.8 RBC 3.79 L Hgb 12.1 L Hct 36.8 L MCV 97.1 MCH 31.9 H MCHC 32.9 RDW 14.1 Plt Count 300 MPV 6.5 L Neutrophils % (Manual) 89 H Band Neuts % (Manual) Lymphocytes % (Manual) 8 L Monocytes % (Manual) 3 Hypochromia SLIGHT = 6-15 cells Plt Morphology Comment Appears Adequate Specimen Type Puncture Site Bicarbonate Actual ABG pH ABG pCO2 ABG pO2 ABG O2 Sat Calc/Callie ABG O2 Content ABG Base Excess ABG Hematocrit ABG Hemoglobin ABG Oxyhemoglobin ABG Carboxyhemoglobin ABG Methemoglobin Dave Test A-a O2 Gradient Ionized Calcium Mode of Support % Minute Volume Mechanical Rate Spontaneous Rate Inspired O2 Tidal Volume Spontaneous Tidal Vol Pressure Support PEEP or CPAP Sodium 136 Potassium 4.7 Chloride 100 Carbon Dioxide 27 Anion Gap 14 BUN 43 H Creatinine 0.92 Estimated GFR (MDRD) 80 Glucose 165 H POC Glucose 150 H Calcium 8.4 Vancomycin Trough 10/23/17 07:25 WBC RBC Hgb Hct MCV MCH MCHC RDW Plt Count MPV Neutrophils % (Manual) Band Neuts % (Manual) Lymphocytes % (Manual) Monocytes % (Manual) Hypochromia Plt Morphology Comment Specimen Type ARTERIAL Puncture Site LB Bicarbonate Actual 34.9 H ABG pH 7.39 ABG pCO2 58.7 H ABG pO2 66.1 ABG O2 Sat Calc/Callie 91.7 L ABG O2 Content 15.7 L ABG Base Excess 8.2 H ABG Hematocrit 36.0 L ABG Hemoglobin 12.3 L ABG Oxyhemoglobin 90.6 L ABG Carboxyhemoglobin 0.9 ABG Methemoglobin 0.30 Dave Test NOT DONE A-a O2 Gradient 110.075 H Ionized Calcium 1.2 Mode of Support SIMV % Minute Volume 5.8 Mechanical Rate 4 Spontaneous Rate 10 Inspired O2 35 Tidal Volume 500 Spontaneous Tidal Vol 387 Pressure Support 5 PEEP or CPAP 5.0 Sodium 137 Potassium 4.3 Chloride 99 Carbon Dioxide Anion Gap BUN Creatinine Estimated GFR (MDRD) Glucose POC Glucose Calcium Vancomycin Trough - ABG Interpretation ABG Results: ABG pH 7.39 (7.35-7.45) 10/23/17 07:25 ABG pCO2 58.7 mmHg (35.0-45.0) H 10/23/17 07:25 ABG O2 Sat Calc/Callie 91.7 % (94.0-98.0) L 10/23/17 07:25 ABG Base Excess 8.2 mEq/L (-2.0 to +3.0) H 10/23/17 07:25 CCU Progress Note: A/P - Problems (1) Acute respiratory failure with hypoxia Current Visit: Yes Status: Acute Code(s): J96.01 - ACUTE RESPIRATORY FAILURE WITH HYPOXIA (2) Diabetes mellitus type 2 in obese Current Visit: Yes Status: Acute Code(s): E11.69 - TYPE 2 DIABETES MELLITUS WITH OTHER SPECIFIED COMPLICATION; E66.9 - OBESITY, UNSPECIFIED (3) Hypertension Current Visit: Yes Status: Acute Code(s): I10 - ESSENTIAL (PRIMARY) HYPERTENSION (4) Pneumonia, community acquired Current Visit: Yes Status: Acute Code(s): J18.9 - PNEUMONIA, UNSPECIFIED ORGANISM - Time Spent with Patient Time: 50% of the time was spent in coordination of care (as documented) Time with Patient: greater than 50 minutes - Plan Plan: Director Physical Therapy Recs to follow resident plan: This is a critically-ill but currently stable 76 yo F who is 2 wks post- being treated for PRES, Eclampsia, and malignant HTN [employer] () Resp (bilateral PNA, acute resp failure, effusion) - on vent - CO2 elevated at 58.7 this AM - suggest spontaneous breathing trial today CV (systolic HF, HTN) - EF 40-45%, likely contributing to pleural effusion - BP WNL - may benefit from gentle diuresis GI () /Renal () - Cr .92, UOP 1.3 ml/kg/hr yesterday - 10 ml/hr NS Infection (bilateral PNA) - on zosyn, s/p vanc - afebrile - resp, blood, urine cultures negative Endo () Code status: full Dispo: >2 days
[2017-10-23] MEDS: hydrALAZINE 25 MG TAB PER TUBE SCH ×3 (08:20→20:45)
[2017-10-23] MEDS: Losartan 25 MG TAB PER TUBE SCH (08:20)
[2017-10-23] MEDS: Heparin 5,000 UNITS/ML VIAL SC SCH ×3 (08:21→20:47)
[2017-10-23] MEDS: Insulin Glargine 20 UNITS in Pre-Filled Syringe SC SCH ×2 (08:21→20:48)
--- NOTE | 2017-10-23 08:39 | RAD ---
CHEST 1 VIEW: Date: 10/23/17 HISTORY: Dyspnea. Intubated. Follow-up. COMPARISON: 10/22/17. FINDINGS: Cardiac silhouette is magnified, enlarged, and partially obscured by bilateral pleural fluid. Pulmona ry vasculature remains engorged with patchy bilateral perihilar infiltrates. Mediastinum is midline. Lines and tubes appear unchanged in position. Old left rib fractures. IMPRESSION: Pulmonary vascular congestion, pleural fluid, and other findings appear stable. POS: TPC
--- NOTE | 2017-10-23 09:37 | PDOC.PN ---
- Subjective Encounter Start Date: 10/23/17 (f/u DM) Encounter Start Time: 09:35 Subjective: Early today bp's to 200 systolic when sedation decreased -: no other o/n events, remains intubated - Objective Resuscitation Status: Resuscitation Status FULL:Full Resuscitation Vital Signs & Weight: Vital Signs (12 hours) Temp Pulse Resp BP Pulse Ox 10/23/17 08:00 98.3 F 12 10/23/17 07:18 66 13 98 10/23/17 06:00 15 10/23/17 04:00 98.6 F 14 10/23/17 03:11 100 20 97 10/23/17 02:00 14 10/23/17 00:09 82 188/79 H 10/23/17 00:00 98.7 F 14 10/22/17 23:14 73 14 98 10/22/17 22:00 11 L 10/22/17 21:39 75 161/63 H Weight Admit Weight 200 lb 13.44 oz Weight 201 lb 11.567 oz Most Recent Monitor Data Heart Rate from ECG 70 NIBP 107/41 NIBP BP-Mean 51 Respiration from ECG 14 SpO2 97 I&O: 10/22/17 10/23/17 10/24/17 06:59 06:59 06:59 Intake Total 3080.9 2811.3 27.7 Output Total 1972 2840 140 Balance 1108.9 -28.7 -112.3 Result Diagrams: 10/23/17 05:14 10/23/17 05:14 Additional Labs: Accuchecks 10/23/17 10/22/17 10/22/17 05:05 21:44 17:20 POC Glucose 150 H 152 H 153 H 10/22/17 11:26 POC Glucose 153 H EKG Reviewed by me: Yes (tele sinus 70's) Phys Exam - Physical Examination Constitutional: NAD pupils equal and round, EOMI Respiratory: no wheezing, no rales scattered rhonchi Cardiovascular: RRR, no significant murmur Gastrointestinal: soft, non-tender, no distention, positive bowel sounds Musculoskeletal: no edema unable to assess. Opens eyes moves upper extremities Skin: no rash Dx/Plan (1) Acute respiratory failure with hypoxia Code(s): J96.01 - ACUTE RESPIRATORY FAILURE WITH HYPOXIA Status: Acute (2) Pneumonia, community acquired Code(s): J18.9 - PNEUMONIA, UNSPECIFIED ORGANISM Status: Acute (3) Septic shock Code(s): A41.9 - SEPSIS, UNSPECIFIED ORGANISM; R65.21 - SEVERE SEPSIS WITH SEPTIC SHOCK Status: Resolved (4) Anemia Code(s): D64.9 - ANEMIA, UNSPECIFIED Status: Acute Qualifiers: Anemia type: unspecified type Qualified Code(s): D64.9 - Anemia, unspecified (5) Dyslipidemia Code(s): E78.5 - HYPERLIPIDEMIA, UNSPECIFIED Status: Chronic (6) Congestive heart failure Code(s): I50.9 - HEART FAILURE, UNSPECIFIED Status: Acute Qualifiers: Heart failure type: unspecified Heart failure chronicity: unspecified Qualified Code(s): I50.9 - Heart failure, unspecified (7) Diabetes mellitus type 2 in obese Code(s): E11.69 - TYPE 2 DIABETES MELLITUS WITH OTHER SPECIFIED COMPLICATION; E66.9 - OBESITY, UNSPECIFIED Status: Chronic (8) Hypertension Code(s): I10 - ESSENTIAL (PRIMARY) HYPERTENSION Status: Chronic - Plan * appreciate Pulmonology consult - on vent, steroids, vanc and zosyn * * HTN - well controlled with amlodipine, losartan and hydralazine scheduled except with weaning sedation -use prn hydralazine * dm - controlled with bid lantus * anemia stable and mild * * dvt prophy - heparin * gi prophy - famotidine * code status full * * pt remains at high risk in current condition * reviewed plan of care with RN * .
[2017-10-23] MEDS ORDERED: Furosemide 100 MG/10 ML VIAL SLOW IVP SCH (12:15)
[2017-10-23] MEDS: Amlodipine 5 MG TAB PER TUBE SCH (14:24)
[2017-10-23] MEDS: Aspirin 325 MG TAB PER TUBE SCH (20:44)
[2017-10-23] MEDS: Famotidine/PF 20 mg/2ml Vial SLOW IVP SCH (20:45)
--- NOTE | 2017-10-24 00:49 | PRG ---
DATE OF SERVICE: 10/23/2017 SUBJECTIVE: He is awake and alert. This morning, was in no distress. He passed a leak test. His m inute volume was 8 liters a minute. I met with his brother and answered all of his questions. His b efraín had actually purchased an oxygen concentrator thinking that if he went home today he would be on oxygen, I have explained he will likely be in the hospital several more weeks. OBJECTIVE: VITAL SIGNS: Blood pressure 150/69, heart rate 88, respiratory rates in the teens. LUNGS: Clear. HEART: Regular rhythm. ABDOMEN: Soft. EXTREMITIES: Without clubbing, cyanosis, or asymmetry or edema. NEUROLOGIC: Grossly nonfocal. Chest radiograph today showed continue pleural effusions bilaterally. He has negative fluid balance of only 28 mL. He was given Lasix again this morning. He subsequently has been extubated and examined multiple time s throughout the day and post-extubation, he has done well. He has had no respiratory distress. IMPRESSION: 1. Pneumonia with adult respiratory distress syndrome, requiring bilevel ventilation on admission. 2. Cardiomyopathy diagnosed this admission. PLAN: Continue supportive care and never did grow anything out of his blood cultures, but continues to slowly improve clinically on a daily basis. Critical care time was 30 minutes.
[2017-10-24 05:48] LABS: Anion Gap 13 mmol/L (10-20); BUN (Urea Nitrogen) 38 mg/dL (8.4-25.7); Calc. Creatinine Clearance 98 mL/min (70-130); Calcium 8.6 mg/dL (7.8-10.44); Carbon Dioxide 31 mmol/L (23-31); Chloride 99 mmol/L (98-107); Estimated GFR-MDRD 90; Glucose 90 mg/dL (83-110); Potassium 4.2 mmol/L (3.5-5.1); Sodium 139 mmol/L (136-145)
[2017-10-24 05:59] LABS: Band 3 % (5-11); Hemoglobin 12.8 g/dL (14.0-18.0); Lymphocytes 9 % (21-51); MDiff Complete? YES; Mean Corpuscular HGB CONC 31.7 g/dL (32.0-36.0); Mean Corpuscular Hemoglobin 30.9 pg (27.0-31.0); Mean Corpuscular Volume 97.4 fL (78.0-98.0); Monocytes 9 % (0-10); Neutrophil 79 % (42-75); Platelet Count 307 thou/uL (130-400); RBC Distribution Width 14.2 % (11.5-14.5); Red Blood Cell (RBC) Count 4.13 mill/uL (4.70-6.10); White Blood Cell (WBC) Count 8.1 thou/uL (4.8-10.8)
[2017-10-24] MEDS: Losartan 25 MG TAB PER TUBE SCH (09:43)
[2017-10-24] MEDS: hydrALAZINE 25 MG TAB PER TUBE SCH (09:43)
[2017-10-24] MEDS: Amoxicillin/Potassium Clav 875 MG TAB PO SCH ×2 (09:43→22:06)
[2017-10-24] MEDS: Enoxaparin Sodium 40 MG/0.4 ML SYRINGE SC SCH (09:44)
[2017-10-24] MEDS: Insulin Glargine 20 UNITS in Pre-Filled Syringe SC SCH (09:53)
--- NOTE | 2017-10-24 10:13 | PDOC.PN ---
- Subjective Encounter Start Date: 10/24/17 (f/u dm) Encounter Start Time: 10:11 Subjective: Pt extubated yesterday. No o/n events. c/o some pain in his urethra -: denies n/v/abd pain or difficulty breathing - Objective Resuscitation Status: Resuscitation Status FULL:Full Resuscitation Vital Signs & Weight: Vital Signs (12 hours) Temp Pulse Resp BP Pulse Ox 10/24/17 09:43 84 127/68 10/24/17 06:53 97 10/24/17 06:51 76 16 97 10/24/17 04:00 97.6 F 10/24/17 02:18 76 19 100 10/24/17 00:00 97.6 F 10/23/17 22:21 79 16 100 Weight Admit Weight 200 lb 13.44 oz Weight 201 lb 11.567 oz Most Recent Monitor Data Heart Rate from ECG 90 NIBP 110/69 NIBP BP-Mean 78 Respiration from ECG 16 SpO2 99 I&O: 10/23/17 10/24/17 10/25/17 06:59 06:59 06:59 Intake Total 2811.3 2156.7 Output Total 2840 3930 Balance -28.7 -1773.3 Result Diagrams: 10/24/17 05:15 10/24/17 05:15 Additional Labs: Accuchecks 10/24/17 10/23/17 10/23/17 06:11 20:49 17:33 POC Glucose 73 112 H 100 10/23/17 11:25 POC Glucose 131 H EKG Reviewed by me: Yes (sinus - tele 70's with pac's) Phys Exam - Physical Examination Constitutional: NAD Respiratory: no wheezing, no rales, no rhonchi decreased breath sounds at the bases Cardiovascular: RRR, no significant murmur Gastrointestinal: soft, non-tender, no distention, positive bowel sounds Musculoskeletal: no edema, pulses present Neurological: non-focal, moves all 4 limbs Psychiatric: normal affect Skin: no rash Dx/Plan (1) Acute respiratory failure with hypoxia Code(s): J96.01 - ACUTE RESPIRATORY FAILURE WITH HYPOXIA Status: Acute (2) Pneumonia, community acquired Code(s): J18.9 - PNEUMONIA, UNSPECIFIED ORGANISM Status: Acute (3) Septic shock Code(s): A41.9 - SEPSIS, UNSPECIFIED ORGANISM; R65.21 - SEVERE SEPSIS WITH SEPTIC SHOCK Status: Resolved (4) Anemia Code(s): D64.9 - ANEMIA, UNSPECIFIED Status: Acute Qualifiers: Anemia type: unspecified type Qualified Code(s): D64.9 - Anemia, unspecified (5) Dyslipidemia Code(s): E78.5 - HYPERLIPIDEMIA, UNSPECIFIED Status: Chronic (6) Congestive heart failure Code(s): I50.9 - HEART FAILURE, UNSPECIFIED Status: Acute Qualifiers: Heart failure type: unspecified Heart failure chronicity: unspecified Qualified Code(s): I50.9 - Heart failure, unspecified (7) Diabetes mellitus type 2 in obese Code(s): E11.69 - TYPE 2 DIABETES MELLITUS WITH OTHER SPECIFIED COMPLICATION; E66.9 - OBESITY, UNSPECIFIED Status: Chronic (8) Hypertension Code(s): I10 - ESSENTIAL (PRIMARY) HYPERTENSION Status: Chronic - Plan * Appreciate Pulm - extubated, steroids and abx changed to PO, cultures negative * consult cardiology due to cardiomyopathy with ef 40-45% * * pt/ot * anemia stable * bp controlled - continue home meds * dm - blood sugar this morning low-normal. Will decrese lantus to 15 units bid * * dvt prophy - lovenox * gi prophy - not indicated * code status full * * .
[2017-10-24] MEDS ORDERED: Amlodipine 5 MG TAB PO SCH (13:00)
[2017-10-24] MEDS: hydrALAZINE 25 MG TAB PO SCH ×2 (14:40→22:07)
--- NOTE | 2017-10-24 17:54 | CON ---
DATE OF CONSULTATION: 10/24/2017 CARDIOLOGY CONSULTATION REASON FOR CONSULTATION: Non-STEMI and reduced LV function. PRIMARY DRY GOODS INSPECTOR: León Navarro M.D. HISTORY OF PRESENT ILLNESS: Mr. Bowie is a very pleasant 76-year-old gentleman, [place] s peaking only, who comes to the hospital for increased shortness of breath. He was admitted on 2017 and he was diagnosed with bilateral pneumonia. He had a very complicated course. He was altere d initially and had to be intubated. He was in the ICU for several days. Today is the first day jose antonio t he was able to come out of the ICU as he was doing much better and he was evaluated with an echocar diogram on the day of admission and his LV function was a little reduced at 40%-45%. He is more stab le now, so Cardiology is being consulted for further evaluation. He has seen Dr. Navarro in the [facility] [place] for hypertension which was difficult to control. He has had an echocardiogram in our office back in 2012, which showed an EF of 55%-60%. He had mild aortic valve sclerosis, mild TR, mild MR at that time. Otherwise, he had not had any repeat ultrasound since then. He had a nuclear stress test als o in 2012 that was normal. Mr. Bowie denies any chest pain, tightness, pressure. He is still a li ttle bit short of breath requiring oxygen, but he still feels very weak from his acute illness. PAST MEDICAL HISTORY: 1. Difficult to control hypertension. 2. Diabetes. 3. Hypertension. 4. Hyperlipidemia. PAST SURGICAL HISTORY: Broken neck surgeries apparently. OUTPATIENT MEDICATIONS: 1. Glyburide 5 mg a day. 2. Losartan 100 mg a day. 3. Breo Ellipta. 4. Nifedipine 30 mg a day. 5. Metformin 1000 mg b.i.d. 6. Atorvastatin 40 mg a day. ALLERGIES: No known drug allergies. SOCIAL HISTORY: Remote history of smoking. He said he quit about 30 years ago. He drinks daily and according to the family may be about a 12-pack of beers a day. No drug use. FAMILY HISTORY: Noncontributory. ALLERGIES: No known drug allergies. REVIEW OF SYSTEMS: A 12-point review of systems was done and it is all negative unless stated in the history of present illness. PHYSICAL EXAMINATION: VITAL SIGNS: Temperature 96.9, pulse 70, respiration rate 18, satting 100% on room air, blood pressu re 134/65. GENERAL: Awake, alert, oriented x3, in no distress. HEENT: Normocephalic and atraumatic. NECK: Supple. LUNGS: Have reduced breath sounds bilaterally at the bases. CARDIOVASCULAR: S1, S2, no S3, S4. There is a grade 2/6 systolic murmur in right upper sternal bord er. ABDOMEN: Soft, positive bowel sounds. EXTREMITIES: Trace edema. SKIN: Warm and dry. LABORATORY DATA AND IMAGING DATA: Laboratory work was reviewed. CBC was reviewed. Coags were revie wed, ABGs and chemistries. BUN was 38, creatinine 0.83. Troponin on admission went from 0.03 to 0.3 , then 0.5 and then 0.6. This was in 10/17. His BNP was 488 on admission and his CK-MB was 3.7. UA unremarkable. Drug screens were all negative. Imaging was reviewed. Echocardiogram showed an EF of 40%-45%, left atrial enlargement, mild MR, mild TR and mild PI. CT of the chest on admission shows left lower lobe pneumonia, right middle lobe and right lung base, possi ble pneumonia as well, bilateral pleural effusions, cardiomegaly and remote left-sided rib fractures. There are vascular calcifications in thoracic spine increased from prior exam and mitral annulus ca lcification on the CT, no mention on coronary calcification. ASSESSMENT AND PLAN: 1. New onset dilated cardiomyopathy. EF at 40% -45% on an echocardiogram done recently on admission . This could be related to his severe illness. However, it could also be related to his alcohol use versus coronary artery disease given he has got all these risk factors. He will certainly need furt her risk stratification with a heart catheterization, however, he is very weak at that time, and I th ink he needs to get over before this happens. I would probably think this would have to happen as an outpatient. Currently, he continues to use oxygen. He has a hard time lying flat on his back, so w e may require just a little more diuresis as well. Otherwise, I have recommended that he refrain fro m drinking alcohol. Blood pressure control is also important and he is back to most of his blood pre ssure medicines, numbers are little bit erratic, but hopefully he will start to level out in the next few days. 2. Hypertension: Malignant, difficult to control in the past. Restart all his home medications. 3. Alcohol use. Counseled on cessation. Thank you for letting us to participate in the care of your patient. Dr. Navarro, his primary card iologist, will follow up in the morning.
--- NOTE | 2017-10-24 19:06 | PDOC.EVN ---
Event Note - Event Note Event Note: blood sugars today in the 70's and 80's - will d/c the night lantus. Reassess in AM with regards to daytime lantus.
[2017-10-24] MEDS ORDERED: Insulin Glargine 15 UNITS in Pre-Filled Syringe 1 EACH SC SCH (21:00)
[2017-10-24] MEDS ORDERED: Famotidine/PF 20 mg/2ml Vial SLOW IVP SCH (21:00)
[2017-10-24] MEDS: Aspirin 325 MG TAB PO SCH (22:06)
[2017-10-25 06:26] LABS: Anion Gap 10 mmol/L (10-20); BUN (Urea Nitrogen) 28 mg/dL (8.4-25.7); Band 5 % (5-11); Calc. Creatinine Clearance 113 mL/min (70-130); Calcium 8.9 mg/dL (7.8-10.44); Carbon Dioxide 34 mmol/L (23-31); Chloride 99 mmol/L (98-107); Eosinophils 1 % (0-10); Estimated GFR-MDRD Greater than 90; Glucose 92 mg/dL (83-110); Hemoglobin 12.1 g/dL (14.0-18.0); Lymphocytes 10 % (21-51); MDiff Complete? YES; Mean Corpuscular HGB CONC 33.3 g/dL (32.0-36.0); Mean Corpuscular Hemoglobin 32.1 pg (27.0-31.0); Mean Corpuscular Volume 96.6 fL (78.0-98.0); Mean Platelet Volume 6.5 fL (7.4-10.4); Monocytes 9 % (0-10); Neutrophil 74 % (42-75); Platelet Count 340 thou/uL (130-400); Potassium 3.8 mmol/L (3.5-5.1); RBC Distribution Width 13.9 % (11.5-14.5); Reactive Lymphocytes 1 % (0-10); Red Blood Cell (RBC) Count 3.77 mill/uL (4.70-6.10); Sodium 139 mmol/L (136-145)
[2017-10-25] MEDS: Furosemide 40 MG TAB PO SCH (06:37)
[2017-10-25] MEDS ORDERED: Potassium Chloride 20 MEQ TAB PO SCH (08:00)
[2017-10-25] MEDS: Enoxaparin Sodium 40 MG/0.4 ML SYRINGE SC SCH (08:56)
[2017-10-25] MEDS: hydrALAZINE 25 MG TAB PO SCH ×3 (08:57→22:04)
[2017-10-25] MEDS: Losartan 25 MG TAB PO SCH (08:57)
[2017-10-25] MEDS: Amoxicillin/Potassium Clav 875 MG TAB PO SCH ×2 (08:57→22:04)
[2017-10-25] MEDS: predniSONE 20 MG TAB PO SCH (08:58)
[2017-10-25] MEDS ORDERED: Insulin Glargine 15 UNITS in Pre-Filled Syringe 1 EACH SC SCH (09:00)
--- NOTE | 2017-10-25 11:25 | PDOC.CTH ---
Cardiology Progress Note - Subjective No chest pain, tightness ,pressure, SOB still present but no worse than yesterday. - Objective Vital Signs Temp Pulse Pulse Resp BP BP BP 10/25/17 10:58 76 20 10/25/17 08:58 87 128/61 10/25/17 08:57 87 128/61 10/25/17 08:55 98 F 87 20 128/61 10/25/17 06:43 10/25/17 06:37 73 24 H 10/25/17 04:14 10/25/17 04:05 97.4 F L 82 20 140/66 10/25/17 02:42 71 18 Pulse Ox Pulse Ox 10/25/17 10:58 10/25/17 08:58 91 L 10/25/17 08:57 10/25/17 08:55 93 L 10/25/17 06:43 93 L 10/25/17 06:37 93 L 10/25/17 04:14 95 10/25/17 04:05 92 L 10/25/17 02:42 94 L Admit Weight 200 lb 13.44 oz Weight 196 lb 10/24/17 10/25/17 10/26/17 06:59 06:59 06:59 Intake Total 2156.7 875 Output Total 3930 860 Balance -1773.3 15 - Physical Examination General/Neuro: alert & oriented x3, NAD Neck: no JVD present Lungs: unlabored respirations Heart: RRR Abdomen: NT/ND Extremities: other: (no edema) - Telemetry Telemetry Rhythm: NSR - Labs Result Diagrams: 10/25/17 05:38 10/25/17 05:38 Troponin/CKMB CK-MB (CK-2) 3.7 ng/mL (0-6.6) 10/17/17 08:45 Troponin I 0.630 ng/mL (< 0.028) H* 10/17/17 22:37 - Assessment/Plan 1. NSTEMI, demand ischemia from pneumonia. 2. Bilateral pneumonia 3. New onset CM, Ef at 40-45%. 4. Alcohol use. 5. HTN PLAN: - Will stop amlodipine and will start low dose Coreg. - Continue Losartan and hydralazine for BP control. - Will need ischemic work up as an outpatient once over his pneumonia. - He will follow up with his Primary director personal Dr. Navarro once discharged.
--- NOTE | 2017-10-25 13:35 | PDOC.PN ---
- Subjective Encounter Start Date: 10/25/17 (f/u DM) Encounter Start Time: 13:33 Subjective: Low blood sugars overnight. Pt reports one loose stool earlier -: denies any complaints. Able to walk a short distance with therapy - Objective Resuscitation Status: Resuscitation Status FULL:Full Resuscitation Vital Signs & Weight: Vital Signs (12 hours) Temp Pulse Pulse Resp BP BP BP 10/25/17 10:58 76 20 10/25/17 08:58 87 128/61 10/25/17 08:57 87 128/61 10/25/17 08:55 98 F 87 20 128/61 10/25/17 08:00 98 F 87 20 10/25/17 06:43 10/25/17 06:37 73 24 H 10/25/17 04:14 10/25/17 04:05 97.4 F L 82 20 140/66 10/25/17 02:42 71 18 Pulse Ox Pulse Ox 10/25/17 10:58 10/25/17 08:58 91 L 10/25/17 08:57 10/25/17 08:55 93 L 10/25/17 08:00 93 L 10/25/17 06:43 93 L 10/25/17 06:37 93 L 10/25/17 04:14 95 10/25/17 04:05 92 L 10/25/17 02:42 94 L Weight Admit Weight 200 lb 13.44 oz Weight 196 lb Most Recent Monitor Data Heart Rate from ECG 76 NIBP 127/68 NIBP BP-Mean 88 Respiration from ECG 17 SpO2 99 I&O: 10/24/17 10/25/17 10/26/17 06:59 06:59 06:59 Intake Total 2156.7 875 Output Total 3930 860 Balance -1773.3 15 Result Diagrams: 10/25/17 05:38 10/25/17 05:38 Additional Labs: Accuchecks 10/25/17 10/25/17 10/25/17 10:39 05:45 02:38 POC Glucose 109 92 126 H 10/24/17 10/24/17 10/24/17 23:36 22:52 22:11 POC Glucose 143 H 45 L* 45 L* 10/24/17 16:43 POC Glucose 82 EKG Reviewed by me: Yes (tele - sinus, BBB 70-80's) Phys Exam - Physical Examination Constitutional: NAD Respiratory: no wheezing, no rales, no rhonchi decreased breath sounds at bilateral bases Cardiovascular: RRR, no significant murmur Gastrointestinal: soft, non-tender, no distention, positive bowel sounds Musculoskeletal: no edema Neurological: non-focal, moves all 4 limbs Psychiatric: normal affect Skin: no rash Dx/Plan (1) Acute respiratory failure with hypoxia Code(s): J96.01 - ACUTE RESPIRATORY FAILURE WITH HYPOXIA Status: Acute (2) Pneumonia, community acquired Code(s): J18.9 - PNEUMONIA, UNSPECIFIED ORGANISM Status: Acute (3) Septic shock Code(s): A41.9 - SEPSIS, UNSPECIFIED ORGANISM; R65.21 - SEVERE SEPSIS WITH SEPTIC SHOCK Status: Resolved (4) Anemia Code(s): D64.9 - ANEMIA, UNSPECIFIED Status: Acute Qualifiers: Anemia type: unspecified type Qualified Code(s): D64.9 - Anemia, unspecified (5) Dyslipidemia Code(s): E78.5 - HYPERLIPIDEMIA, UNSPECIFIED Status: Chronic (6) Congestive heart failure Code(s): I50.9 - HEART FAILURE, UNSPECIFIED Status: Acute Qualifiers: Heart failure type: unspecified Heart failure chronicity: unspecified Qualified Code(s): I50.9 - Heart failure, unspecified (7) Diabetes mellitus type 2 in obese Code(s): E11.69 - TYPE 2 DIABETES MELLITUS WITH OTHER SPECIFIED COMPLICATION; E66.9 - OBESITY, UNSPECIFIED Status: Chronic (8) Hypertension Code(s): I10 - ESSENTIAL (PRIMARY) HYPERTENSION Status: Chronic - Plan * Appreciate Pulm - on oral steroids and antibiotics * * Appreciate Cardiology - now on low dose beta-jose guadalupe, and will need outpatient f/u and work-up with Dr. Navarro * * pt/ot * anemia stable * * bp controlled - * dm -given low blood sugar, will d/c lantus. Use add back metformin which he is on at home, and continue SSI * * dvt prophy - lovenox * gi prophy - not indicated * code status full * * Will consult case management for options on SNF vs home health when pt is ready for discharge. * pt remains at high risk in current condition
--- NOTE | 2017-10-25 15:27 | PRG ---
DATE OF SERVICE: 10/25/2017 SUBJECTIVE: Mr. Bowie did well overnight. He has no new reported problems. Overall, he continues to slowly improve. He is stable, status post being moved out of the Critical c are unit. Physical therapy is the main issue at hand. He has also been seen by Cardiology. It is felt that once he is recovered from his pneumonia, we will need either a stress test or cardiac catheterization. Hopefully, his ejection fraction is sepsis related and not indicative of coronary artery disease.
[2017-10-25] MEDS: Carvedilol 3.125 MG TAB PO SCH (17:33)
[2017-10-25] MEDS: Aspirin 325 MG TAB PO SCH (22:04)
[2017-10-26 06:20] LABS: Anion Gap 14 mmol/L (10-20); BUN (Urea Nitrogen) 26 mg/dL (8.4-25.7); Calc. Creatinine Clearance 113 mL/min (70-130); Calcium 8.9 mg/dL (7.8-10.44); Carbon Dioxide 28 mmol/L (23-31); Chloride 102 mmol/L (98-107); Estimated GFR-MDRD Greater than 90; Glucose 82 mg/dL (83-110); Potassium 3.7 mmol/L (3.5-5.1); Sodium 140 mmol/L (136-145)
[2017-10-26] MEDS: Carvedilol 3.125 MG TAB PO SCH ×2 (08:07→17:15)
[2017-10-26] MEDS: Furosemide 40 MG TAB PO SCH (08:07)
[2017-10-26] MEDS: predniSONE 20 MG TAB PO SCH (08:07)
[2017-10-26] MEDS: Amoxicillin/Potassium Clav 875 MG TAB PO SCH ×2 (08:08→21:19)
[2017-10-26] MEDS: Enoxaparin Sodium 40 MG/0.4 ML SYRINGE SC SCH (08:08)
[2017-10-26] MEDS: hydrALAZINE 25 MG TAB PO SCH ×3 (08:08→21:19)
[2017-10-26] MEDS: Losartan 25 MG TAB PO SCH (08:08)
--- NOTE | 2017-10-26 17:15 | PDOC.PN ---
- Subjective Encounter Start Date: 10/26/17 (f/u diabetes) Encounter Start Time: 17:12 Subjective: pt reports he is feeling well, able to ambulate with PT today -: denies n/v/abd pain/chest pain - Objective Resuscitation Status: Resuscitation Status FULL:Full Resuscitation Vital Signs & Weight: Vital Signs (12 hours) Temp Pulse Pulse Resp BP BP Pulse Ox 10/26/17 15:41 98.3 F 74 18 135/64 99 10/26/17 14:19 76 20 10/26/17 11:26 98.0 F 70 20 149/67 H 98 10/26/17 11:02 70 149/67 H 10/26/17 10:19 76 20 10/26/17 07:59 98.2 F 80 18 159/70 H 95 10/26/17 07:45 98.0 F 70 20 95 10/26/17 06:27 96 10/26/17 06:25 73 20 96 Weight Admit Weight 200 lb 13.44 oz Weight 186 lb 1.6 oz Most Recent Monitor Data Heart Rate from ECG 76 NIBP 127/68 NIBP BP-Mean 88 Respiration from ECG 17 SpO2 99 I&O: 10/25/17 10/26/17 10/27/17 06:59 06:59 06:59 Intake Total 875 200 Output Total 860 625 Balance 15 -425 Result Diagrams: 10/25/17 05:38 10/26/17 05:47 Additional Labs: Accuchecks 10/26/17 10/26/17 10/25/17 11:26 06:06 20:24 POC Glucose 104 80 151 H EKG Reviewed by me: Yes (tele - [id number]) Phys Exam - Physical Examination Constitutional: NAD Respiratory: no wheezing, no rales, no rhonchi improved air movement Cardiovascular: RRR, no significant murmur Gastrointestinal: soft, non-tender, no distention, positive bowel sounds Musculoskeletal: no edema Neurological: non-focal, moves all 4 limbs Psychiatric: normal affect Skin: no rash Dx/Plan (1) Acute respiratory failure with hypoxia Code(s): J96.01 - ACUTE RESPIRATORY FAILURE WITH HYPOXIA Status: Acute (2) Pneumonia, community acquired Code(s): J18.9 - PNEUMONIA, UNSPECIFIED ORGANISM Status: Acute Qualifiers: Laterality: unspecified laterality Qualified Code(s): J18.9 - Pneumonia, unspecified organism (3) Septic shock Code(s): A41.9 - SEPSIS, UNSPECIFIED ORGANISM; R65.21 - SEVERE SEPSIS WITH SEPTIC SHOCK Status: Resolved (4) Anemia Code(s): D64.9 - ANEMIA, UNSPECIFIED Status: Acute Qualifiers: Anemia type: unspecified type Qualified Code(s): D64.9 - Anemia, unspecified (5) Dyslipidemia Code(s): E78.5 - HYPERLIPIDEMIA, UNSPECIFIED Status: Chronic (6) Congestive heart failure Code(s): I50.9 - HEART FAILURE, UNSPECIFIED Status: Acute Qualifiers: Heart failure type: unspecified Heart failure chronicity: unspecified Qualified Code(s): I50.9 - Heart failure, unspecified (7) Diabetes mellitus type 2 in obese Code(s): E11.69 - TYPE 2 DIABETES MELLITUS WITH OTHER SPECIFIED COMPLICATION; E66.9 - OBESITY, UNSPECIFIED Status: Chronic (8) Hypertension Code(s): I10 - ESSENTIAL (PRIMARY) HYPERTENSION Status: Chronic Qualifiers: Hypertension type: essential hypertension Qualified Code(s): I10 - Essential (primary) hypertension - Plan * * Appreciate Pulm - on oral steroids and antibiotics, oxygen being weaned. * * Appreciate Cardiology -on low dose beta-jose guadalupe, and will need outpatient f/u and work-up with Dr. Navarro. BP not well controlled - on hydralazine, losartan, and low dose carvedilol. Will increase the carvedilol and monitor heart rate/tolerance. Continue diuretic with lasix. * * pt/ot * anemia stable * * dm -blood sugars well controlled off of insulin, no indication to restart this. * * dvt prophy - lovenox * gi prophy - not indicated * code status full * * Pt continues to improve -uncertain if home vs skilled facility vs other at this time - anticipate he will be ready in the next few days. * pt remains at high risk in current condition. * reviewed plan of care with patient and family through video phytopathologist, no questions or further needs at end of eval.
[2017-10-26] MEDS: Aspirin 325 MG TAB PO SCH (21:19)
[2017-10-27 06:52] LABS: Anion Gap 10 mmol/L (10-20); BUN (Urea Nitrogen) 24 mg/dL (8.4-25.7); Calc. Creatinine Clearance 109 mL/min (70-130); Calcium 8.7 mg/dL (7.8-10.44); Carbon Dioxide 30 mmol/L (23-31); Chloride 101 mmol/L (98-107); Estimated GFR-MDRD Greater than 90; Glucose 103 mg/dL (83-110); Potassium 3.5 mmol/L (3.5-5.1); Sodium 137 mmol/L (136-145)
[2017-10-27] MEDS: Carvedilol 6.25 MG TAB PO SCH ×2 (08:07→17:23)
[2017-10-27] MEDS: hydrALAZINE 25 MG TAB PO SCH ×3 (08:07→20:43)
[2017-10-27] MEDS: Amoxicillin/Potassium Clav 875 MG TAB PO SCH (08:07)
[2017-10-27] MEDS: Furosemide 40 MG TAB PO SCH (08:07)
[2017-10-27] MEDS: predniSONE 20 MG TAB PO SCH (08:08)
[2017-10-27] MEDS: Losartan 25 MG TAB PO SCH (08:08)
[2017-10-27] MEDS: Enoxaparin Sodium 40 MG/0.4 ML SYRINGE SC SCH (08:09)
--- NOTE | 2017-10-27 11:37 | PDOC.PN ---
- Subjective Encounter Start Date: 10/27/17 (f/u pneumonia) Encounter Start Time: 11:31 Subjective: Pt without complaints -states he is able to walk short distances with PT -: denies any pain or difficulty breathing - Objective Resuscitation Status: Resuscitation Status FULL:Full Resuscitation Vital Signs & Weight: Vital Signs (12 hours) Temp Pulse Resp BP BP Pulse Ox 10/27/17 10:39 96 10/27/17 10:37 73 20 96 10/27/17 08:07 67 140/64 10/27/17 07:45 97.8 F 67 14 140/64 95 10/27/17 06:37 89 L 10/27/17 06:35 71 20 89 L 10/27/17 04:00 98.1 F 78 18 131/62 92 L 10/27/17 01:47 72 18 97 10/26/17 23:48 66 18 93 L Weight Admit Weight 200 lb 13.44 oz Weight 187 lb 3.2 oz Most Recent Monitor Data Heart Rate from ECG 76 NIBP 127/68 NIBP BP-Mean 88 Respiration from ECG 17 SpO2 99 I&O: 10/26/17 10/27/17 10/28/17 06:59 06:59 06:59 Intake Total 200 200 Output Total 625 550 Balance -425 -350 Result Diagrams: 10/25/17 05:38 10/27/17 06:19 Additional Labs: Accuchecks 10/27/17 10/27/17 10/26/17 10:43 06:07 21:17 POC Glucose 204 H 99 164 H 10/26/17 10/26/17 16:57 11:26 POC Glucose 166 H 104 EKG Reviewed by me: Yes (tele - sinus 60-70's) Phys Exam - Physical Examination Constitutional: NAD Respiratory: no wheezing, no rales, no rhonchi improved air movement Cardiovascular: RRR, no significant murmur Gastrointestinal: soft, non-tender, no distention, positive bowel sounds Musculoskeletal: no edema, pulses present Neurological: non-focal, moves all 4 limbs Psychiatric: normal affect Skin: no rash Dx/Plan (1) Acute respiratory failure with hypoxia Code(s): J96.01 - ACUTE RESPIRATORY FAILURE WITH HYPOXIA Status: Acute (2) Pneumonia, community acquired Code(s): J18.9 - PNEUMONIA, UNSPECIFIED ORGANISM Status: Acute Qualifiers: Laterality: unspecified laterality Qualified Code(s): J18.9 - Pneumonia, unspecified organism (3) Septic shock Code(s): A41.9 - SEPSIS, UNSPECIFIED ORGANISM; R65.21 - SEVERE SEPSIS WITH SEPTIC SHOCK Status: Resolved (4) Anemia Code(s): D64.9 - ANEMIA, UNSPECIFIED Status: Acute Qualifiers: Anemia type: unspecified type Qualified Code(s): D64.9 - Anemia, unspecified (5) Dyslipidemia Code(s): E78.5 - HYPERLIPIDEMIA, UNSPECIFIED Status: Chronic (6) Congestive heart failure Code(s): I50.9 - HEART FAILURE, UNSPECIFIED Status: Acute Qualifiers: Heart failure type: unspecified Heart failure chronicity: unspecified Qualified Code(s): I50.9 - Heart failure, unspecified (7) Diabetes mellitus type 2 in obese Code(s): E11.69 - TYPE 2 DIABETES MELLITUS WITH OTHER SPECIFIED COMPLICATION; E66.9 - OBESITY, UNSPECIFIED Status: Chronic (8) Hypertension Code(s): I10 - ESSENTIAL (PRIMARY) HYPERTENSION Status: Chronic Qualifiers: Hypertension type: essential hypertension Qualified Code(s): I10 - Essential (primary) hypertension - Plan * Appreciate Pulm - * on oral steroids and antibiotics, oxygen being weaned. * Antibiotics Zosyn 10/17 - 10/23, Vanc 10/17 - 10/22, Augmentin 10/24 - today is day 11 of antibiotics - will check with Dr. Wang regarding duration of this. - discussed, can be d/c * * Appreciate Cardiology -on low dose beta-jose guadalupe, and will need outpatient f/u and work-up with Dr. Navarro. BP improved to control - carvedilol was increased yesterday. Pt has been on daily lasix - will lower dose as appears euvolemic. * * pt/ot * anemia stable * * dm -blood sugars well controlled off of insulin, no indication to restart this. * * dvt prophy - lovenox * gi prophy - not indicated * code status full * * Pt continues to improve -place rehab screening and case management consult updated for snf vs rehab options. * pt remains at high risk in current condition. * reviewed plan of care with patient and family through video metal flow coordinator, no questions or further needs at end of eval..
[2017-10-27] MEDS: HumaLOG 300 UNITS/3 ML VIAL SC PRN (12:13)
--- NOTE | 2017-10-27 16:50 | PRG ---
DATE OF SERVICE: 10/27/2017 SUBJECTIVE: Mr. Bowie has no complaints. He says he is feeling well. OBJECTIVE: VITAL SIGNS: He is afebrile, heart rate 73, respiratory rate is 15, oximetry is 100% on 1 liter. __ __ 90% on room air, so he is close to being weaned off his oxygen. LUNGS: Clear. HEART: Regular rhythm. ABDOMEN: Soft. LABORATORY DATA: There is no new lab except electrolytes, which are normal. IMPRESSION: 1. Pneumonia that was severe, requiring mechanical ventilation and bilevel ventilation. 2. Cardiomyopathy that is an incidental finding in this admission. 3. Diabetes. PLAN: Continue physical therapy. Gradual weaning from oxygen. His antibiotics can be discontinued. He can be transferred to rehab at any time.
[2017-10-27] MEDS: Aspirin 325 MG TAB PO SCH (20:43)
[2017-10-28 06:01] LABS: Anion Gap 13 mmol/L (10-20); BUN (Urea Nitrogen) 23 mg/dL (8.4-25.7); Calc. Creatinine Clearance 100 mL/min (70-130); Calcium 8.9 mg/dL (7.8-10.44); Carbon Dioxide 28 mmol/L (23-31); Chloride 100 mmol/L (98-107); Estimated GFR-MDRD Greater than 90; Glucose 100 mg/dL (83-110); Potassium 3.8 mmol/L (3.5-5.1); Sodium 137 mmol/L (136-145)
[2017-10-28] MEDS: Losartan 25 MG TAB PO SCH (07:58)
[2017-10-28] MEDS: Enoxaparin Sodium 40 MG/0.4 ML SYRINGE SC SCH (07:58)
[2017-10-28] MEDS: predniSONE 20 MG TAB PO SCH (07:59)
[2017-10-28] MEDS: Carvedilol 6.25 MG TAB PO SCH ×2 (07:59→16:37)
[2017-10-28] MEDS: hydrALAZINE 25 MG TAB PO SCH ×3 (07:59→21:38)
[2017-10-28] MEDS: Furosemide 20 MG TAB PO SCH (07:59)
--- NOTE | 2017-10-28 08:13 | PQF ---
CLINICAL DOCUMENTATION IMPROVEMENT CLARIFICATION FORM: ICD-10 Updated PLEASE DO AN ADDENDUM TO THE PROGRESS NOTE WITH ANY DOCUMENTATION UPDATES OR ADDITIONS AND CARRY THROUGH TO DC SUMMARY. THANK YOU. DATE: 10/28, 10/29 ATTN: DR. KELSY MCGHEE Please exercise your independent, professional judgment in responding to the clarification form. Clinical indicators are provided on the bottom of this form for your review. Please check appropriate box(s): HEART FAILURE, UNSPECIFIED, ACUTE TYPE: [ x ] Systolic / HFrEF [ ] Diastolic / HFpEF [ ] Combined Systolic / Diastolic [ ] Other diagnosis [ ] Unable to determine For continuity of documentation, please document condition throughout progress notes and discharge summary. Thank You. CLINICAL INDICATORS - SIGNS / SYMPTOMS / LABS BNP: 488 (ADMIT, 10/17) ECHO 10/17: EF 40-45%, L [facility] DILATED ATTENDING PN 10/23 - 10/27: ASSESSMENT/PLAN: 6) HEART FAILURE, UNSPECIFIED, ACUTE CARDIOLOGY CONSULT 10/24: ASSESSMENT: 1) NEW ONSET DILATED CARDIOMYOPATHY RISKS: HTN (DIFFICULT TO CONTROL) CKD DM II NSTEMI D/T DEMAND ISCHEMIA (CARDIOLOGY PN 10/25) TREATMENTS: IV LASIX (10/22 - 10/23: 3 NOW DOSES; PO LASIX 10/25 - PRESENT) CARDIOLOGY CONSULT CARDIAC MONITORING ECHO THANK YOU! Laurence (This form is maintained as a part of the permanent medical record) 2014 [employer]. All Rights Reserved Laurence Negrete RN, BSN [email or web address]: [phone] [facility]
[2017-10-28] MEDS: HumaLOG 300 UNITS/3 ML VIAL SC PRN (11:33)
--- NOTE | 2017-10-28 13:12 | PDOC.PN ---
- Subjective Encounter Start Date: 10/28/17 Encounter Start Time: 10:10 -: old records requested/rev Pt seen and examined, chart reviewed in its entirety, this is my first visit with this patient. followup for acute hypoxemic respirqatory failure, CAP, HTN, DM2 Pt breathing well, some cough, productive of white mucous, no blood. No F/C, no N/V/D/C. getting up with walker to BR in his room. awaiting insurance approval for rehab. all systems reviewed and neg for all systems except as above - Objective Resuscitation Status: Resuscitation Status FULL:Full Resuscitation MAR Reviewed: Yes Vital Signs & Weight: Vital Signs (12 hours) Temp Pulse Resp BP BP BP Pulse Ox 10/28/17 11:28 98.7 F 67 16 135/63 97 10/28/17 10:38 72 20 92 L 10/28/17 08:00 97.6 F 69 18 95 10/28/17 07:59 69 161/74 H 10/28/17 07:53 97.6 F 69 18 161/74 H 95 10/28/17 07:22 92 L 10/28/17 07:21 63 20 92 L 10/28/17 04:00 97.6 F 67 16 167/71 H 94 L Weight Admit Weight 200 lb 13.44 oz Weight 187 lb 12.8 oz Most Recent Monitor Data Heart Rate from ECG 76 NIBP 127/68 NIBP BP-Mean 88 Respiration from ECG 17 SpO2 99 I&O: 10/27/17 10/28/17 10/29/17 06:59 06:59 06:59 Intake Total 200 1420 Output Total 550 600 Balance -350 820 Result Diagrams: 10/25/17 05:38 10/28/17 05:05 Additional Labs: Accuchecks 10/28/17 10/28/17 10/27/17 10:41 06:29 20:41 POC Glucose 191 H 94 193 H 10/27/17 16:28 POC Glucose 140 H Radiology Reviewed by me: Yes EKG Reviewed by me: Yes Phys Exam - Physical Examination Constitutional: NAD HEENT: PERRLA, moist MMs, sclera anicteric, oral pharynx no lesions Neck: no nodes, no JVD, supple, full ROM Respiratory: no wheezing, no rales, no rhonchi, clear to auscultation bilateral Cardiovascular: RRR, no significant murmur, no rub Gastrointestinal: soft, non-tender, no distention, positive bowel sounds Musculoskeletal: pulses present, edema present Neurological: non-focal, normal sensation, moves all 4 limbs Lymphatic: no nodes Psychiatric: normal affect, A&O x 3 Skin: no rash, normal turgor, cap refill <2 seconds Dx/Plan (1) Acute respiratory failure with hypoxia Code(s): J96.01 - ACUTE RESPIRATORY FAILURE WITH HYPOXIA Status: Acute (2) Anemia Code(s): D64.9 - ANEMIA, UNSPECIFIED Status: Chronic Qualifiers: Anemia type: unspecified type Qualified Code(s): D64.9 - Anemia, unspecified (3) Congestive heart failure Code(s): I50.9 - HEART FAILURE, UNSPECIFIED Status: Chronic Qualifiers: Heart failure type: unspecified Heart failure chronicity: unspecified Qualified Code(s): I50.9 - Heart failure, unspecified (4) Pneumonia, community acquired Code(s): J18.9 - PNEUMONIA, UNSPECIFIED ORGANISM Status: Acute Qualifiers: Laterality: unspecified laterality Qualified Code(s): J18.9 - Pneumonia, unspecified organism (5) Diabetes mellitus type 2 in obese Code(s): E11.69 - TYPE 2 DIABETES MELLITUS WITH OTHER SPECIFIED COMPLICATION; E66.9 - OBESITY, UNSPECIFIED Status: Chronic (6) Dyslipidemia Code(s): E78.5 - HYPERLIPIDEMIA, UNSPECIFIED Status: Chronic (7) Hypertension Code(s): I10 - ESSENTIAL (PRIMARY) HYPERTENSION Status: Chronic Qualifiers: Hypertension type: essential hypertension Qualified Code(s): I10 - Essential (primary) hypertension (8) Septic shock Code(s): A41.9 - SEPSIS, UNSPECIFIED ORGANISM; R65.21 - SEVERE SEPSIS WITH SEPTIC SHOCK Status: Resolved - Plan cont current plan of care, plan discussed w/ family, continue antibiotics, PT/OT , out of bed/ambulate * .
[2017-10-28] MEDS: Aspirin 325 MG TAB PO SCH (21:38)
[2017-10-29 05:36] LABS: Anion Gap 12 mmol/L (10-20); BUN (Urea Nitrogen) 23 mg/dL (8.4-25.7); Calc. Creatinine Clearance 112 mL/min (70-130); Calcium 8.9 mg/dL (7.8-10.44); Carbon Dioxide 27 mmol/L (23-31); Chloride 101 mmol/L (98-107); Estimated GFR-MDRD Greater than 90; Glucose 105 mg/dL (83-110); Potassium 3.4 mmol/L (3.5-5.1); Sodium 137 mmol/L (136-145)
[2017-10-29] MEDS: Furosemide 20 MG TAB PO SCH (08:20)
[2017-10-29] MEDS: hydrALAZINE 25 MG TAB PO SCH (08:20)
[2017-10-29] MEDS: Carvedilol 6.25 MG TAB PO SCH (08:21)
[2017-10-29] MEDS: predniSONE 20 MG TAB PO SCH (08:21)
[2017-10-29] MEDS: Losartan 25 MG TAB PO SCH (08:21)
[2017-10-29] MEDS: Enoxaparin Sodium 40 MG/0.4 ML SYRINGE SC SCH (08:22)
--- NOTE | 2017-10-29 11:31 | PDOC.PN ---
- Subjective Encounter Start Date: 10/29/17 Encounter Start Time: 11:00 No new complaints, no acute events, weaning slowly off of O2. awaiting insurance approval for rehab. No F/c, no N/V/D/C, no CP or SOB except RANDALL. all systems reviewed and neg x as above - Objective Resuscitation Status: Resuscitation Status FULL:Full Resuscitation MAR Reviewed: Yes Vital Signs & Weight: Vital Signs (12 hours) Temp Pulse Resp BP Pulse Ox 10/29/17 10:29 68 18 92 L 10/29/17 08:33 98.8 F 68 18 172/78 H 97 10/29/17 06:31 90 L 10/29/17 06:30 71 18 90 L 10/29/17 04:00 98.0 F 65 16 174/76 H 92 L 10/29/17 01:38 67 16 Weight Admit Weight 200 lb 13.44 oz Weight 188 lb 12.8 oz Most Recent Monitor Data Heart Rate from ECG 76 NIBP 127/68 NIBP BP-Mean 88 Respiration from ECG 17 SpO2 99 I&O: 10/28/17 10/29/17 10/30/17 06:59 06:59 06:59 Intake Total 1420 1520 Output Total 600 725 Balance 820 795 Result Diagrams: 10/25/17 05:38 10/29/17 04:57 Additional Labs: Accuchecks 10/29/17 10/29/17 10/28/17 10:44 05:21 20:41 POC Glucose 166 H 95 103 10/28/17 16:30 POC Glucose 144 H Phys Exam - Physical Examination Constitutional: NAD HEENT: PERRLA, moist MMs, sclera anicteric, oral pharynx no lesions Neck: no nodes, no JVD, supple, full ROM Respiratory: no wheezing, no rhonchi Cardiovascular: RRR, no significant murmur, no rub Gastrointestinal: soft, non-tender, no distention, positive bowel sounds Musculoskeletal: pulses present, edema present Neurological: non-focal, normal sensation, moves all 4 limbs Lymphatic: no nodes Psychiatric: normal affect, A&O x 3 Skin: no rash, normal turgor, cap refill <2 seconds Dx/Plan (1) Acute respiratory failure with hypoxia Code(s): J96.01 - ACUTE RESPIRATORY FAILURE WITH HYPOXIA Status: Acute Comment: weaning slowly off of o2 (2) Anemia Code(s): D64.9 - ANEMIA, UNSPECIFIED Status: Chronic Qualifiers: Anemia type: unspecified type Qualified Code(s): D64.9 - Anemia, unspecified (3) Congestive heart failure Code(s): I50.9 - HEART FAILURE, UNSPECIFIED Status: Chronic Qualifiers: Heart failure type: unspecified Heart failure chronicity: unspecified Qualified Code(s): I50.9 - Heart failure, unspecified (4) Pneumonia, community acquired Code(s): J18.9 - PNEUMONIA, UNSPECIFIED ORGANISM Status: Acute Qualifiers: Laterality: unspecified laterality Qualified Code(s): J18.9 - Pneumonia, unspecified organism (5) Diabetes mellitus type 2 in obese Code(s): E11.69 - TYPE 2 DIABETES MELLITUS WITH OTHER SPECIFIED COMPLICATION; E66.9 - OBESITY, UNSPECIFIED Status: Chronic (6) Dyslipidemia Code(s): E78.5 - HYPERLIPIDEMIA, UNSPECIFIED Status: Chronic (7) Hypertension Code(s): I10 - ESSENTIAL (PRIMARY) HYPERTENSION Status: Chronic Qualifiers: Hypertension type: essential hypertension Qualified Code(s): I10 - Essential (primary) hypertension (8) Septic shock Code(s): A41.9 - SEPSIS, UNSPECIFIED ORGANISM; R65.21 - SEVERE SEPSIS WITH SEPTIC SHOCK Status: Resolved - Plan cont current plan of care, plan discussed w/ family, continue antibiotics, PT/OT , out of bed/ambulate * .
[2017-10-29 12:20] VITALS: TEMP 98.5
[2017-10-29 14:04] VITALS: BMI 30.4
--- NOTE | 2017-10-29 14:38 | DIS ---
DATE OF ADMISSION: 10/17/2017 DATE OF DISCHARGE: 10/29/2017 PRIMARY CARE PHYSICIAN: Janie Henry M.D., in [place]. DISCHARGE DIAGNOSES: 1. Community-acquired pneumonia. 2. Acute hypoxemic respiratory failure, resolved. 3. Anemia of chronic disease. 4. Acute on chronic systolic congestive heart failure. 5. Diabetes mellitus, type 2. 6. Obesity with BMI of 30-35. 7. Community-acquired pneumonia. 8. Essential hypertension. 9. Hyperlipidemia. 10. Septic shock, present on admission, resolved. CONSULTATIONS: 1. Cardiology, Dr. Solo Beatty, 10/24/2017. 2. Pulmonary Critical Care, Dr. Juancarlos Wang, 10/17/2017 PROCEDURES: Echocardiogram, 10/17/2017, EF 40%-45%, mild valvular insufficiency. HISTORY AND PHYSICAL: Mr. Bowie is a 76-year-old [place] male with a history of diabetes, h ypertension, high cholesterol, who presented to the emergency department date of admission with alter ed mental status. The patient was intubated and unable to give a history and was apparently in his [facility] until the morning of admission, and his tried to wake him up, but was unabl e to arouse him. He looked sweaty. He was having difficulty breathing, so he called EMS. The patie nt was brought to the ER and found to be in respiratory distress and intubated, found to be hypercapn ic as well as hypoxemic. Chest x-ray showed left-sided infiltrate. He was treated for a presumed pn eumonia, started on pressors after IV fluids were not sufficient, and was subsequently admitted here. HOSPITAL COURSE: The patient was seen and examined by Dr. Selvin Coppola on 10/17/2017, patient was adm itted to the critical care unit and Pulmonary Critical Care was consulted for ventilator management. The patient slowly improved from 10/17/2017 to 10/24/2017. Please see progress note for details, and ultimately, 10/24/2017, he was extubated. He was subsequently transferred to the floor where he continued to improve and received physical therapy technician apy and was found to be very deconditioned. He was slowly weaned off oxygen. He did complete his an tibiotic course. On 10/28/2017, referral was made to [facility] for rehabilitation, and on 10/29/2017 [facility] approval was granted and the patient was transferred in stable condition PHYSICAL EXAMINATION: The patient was seen and examined on the day of discharge, please see progress note dated same day. DISCHARGE MEDICATIONS: 1. Aspirin 325 mg daily. 2. Coreg 6.25 mg p.o. b.i.d. 3. Lasix 20 mg p.o. daily. 4. Hydralazine 25 mg p.o. t.i.d. 5. DuoNeb 3 mL q.4 hours. 6. Losartan 100 mg daily. 7. Prednisone 20 mg p.o. q.a.m. 8. Lipitor 40 mg p.o. at bedtime. 9. Breo Ellipta 100/25 one puff inhaled daily. 10. Glyburide 5 mg daily. 11. Metformin 1000 mg p.o. b.i.d. 12. Nifedipine 30 mg daily. DISCHARGE ACTIVITY: Per cardiopulmonary limits. DISCHARGE DIET: Heart healthy diabetic diet. DISCHARGE CONDITION: Stable. DISPOSITION: Being discharged to [facility] for rehabilitation for p hysical therapy and occupational therapy.
[2017-10-29 16:06] VITALS: BP 175/82
== END 2017-10-29 16:00 | DRG 870 ==
LOC: ERS 08:35 → EDBD 08:35 → CCU 12:31 → 2NO 10-24 10:26
PROVIDERS: ADMIT Internal Medicine; ATTEND Internal Medicine
PROC: 5A1955Z Respiratory Ventilation, Greater than 96 Consecutive Hours (ICD-10-PCS; principal; 2017-10-17)
DX: A41.9 Sepsis, unspecified organism (principal); J96.01 Acute respiratory failure with hypoxia; R65.21 Severe sepsis with septic shock; J96.02 Acute respiratory failure with hypercapnia; J18.0 Bronchopneumonia, unspecified organism; I50.23 Acute on chronic systolic (congestive) heart failure; I24.8 Other forms of acute ischemic heart disease; N17.9 Acute kidney failure, unspecified; I42.0 Dilated cardiomyopathy; I13.0 Hypertensive heart and chronic kidney disease with heart failure and stage 1 through stage 4 chronic kidney disease, or unspecified chronic kidney disease; D64.9 Anemia, unspecified; E78.5 Hyperlipidemia, unspecified; E66.9 Obesity, unspecified; Z68.32 Body mass index [BMI] 32.0-32.9, adult; K21.9 Gastro-esophageal reflux disease without esophagitis; D63.8 Anemia in other chronic diseases classified elsewhere; D63.1 Anemia in chronic kidney disease; Z87.891 Personal history of nicotine dependence; N18.9 Chronic kidney disease, unspecified; E11.22 Type 2 diabetes mellitus with diabetic chronic kidney disease
CPT/HCPCS: 36415; 36416; 51702; 70450; 71045; 71250; 80048; 80053; 80061; 80202; 80306; 80307; 81003; 81015; 82553; 82805; 83605; 83735; 83880; 84443; 84484; 85007; 85025; 85027; 85610; 85730; 87040; 87070; 87086; 87205; 93005; 93306; 94002; 94003; 94640; 94760; 96361; 96365; 96366; 96375; 96376; A4216; G8978-GP-CN; G8979-GP-CK; G8987-GO-CI; G8988-GO-CH; J0360; J1610; J1644; J1650; J1940; J2060; J2543; J2704; J2920; J2930; J3010; J3370; J7050; J7506; J7620; S0028